=== PATIENT | male | born 1975 | race Caucasian/White ===

== ENCOUNTER 2016-09-27 05:30 | Emergency (ER) | payer OTHER ==
[~2016-09-27] VITALS: Ht 180.3 cm; Wt 145.5 kg
[~2016-09-27 05:30] MED LIST: ALEVE 220MG220 MG PO; AMBIEN 10MG10 MG PO; AMBIEN5 MG PO; HCTZ 25MG TAB25 MG PO; NO HOME MEDICATIONS; PERCOCET 325 MG1 TA3 PO; PERCOCET 5/321 UDTAB PO; ZESTRIL 5MG5 MG PO; ZIAC 5/6.25MG T1 TAB PO
[2016-09-27 05:36] VITALS: TEMP 99.7
[2016-09-27 06:26] LABS: BASO # 0.1 (0.0-0.2); BASO % 0.4 % (0.0-2.0); EOS # 0.5 (0.0-0.7); EOS % 3.6 % (0-4.0); GRAN # 9.8 (1.4-6.5); GRAN % 77.9 % (42.2-75.2); HEMATOCRIT 44.2 % (42.0-52.0); LYMPH # 1.5 (1.2-3.4); LYMPH % 11.9 % (20.0-51.0); MEAN CELL VOLUME 95 fl (80.0-100.0); MEAN CORPUSCULAR HEMOGLOBIN 30 pg (27.0-31.0); MEAN CORPUSCULAR HGB CONC 32 g/dl (33.0-37.0); MEAN PLATELET VOLUME 9.1 fl (7.4-10.4); MONO # 0.7 (0.1-0.6); MONO % 5.6 % (1.7-9.3); PLATELET COUNT 287 K/mm3 (130-400); RED BLOOD COUNT 4.67 M/mm3 (4.20-5.60); REDCELL DISTRIBUTION WIDTH-CV 13.5 % (11.5-14.5); WHITE BLOOD COUNT 12.6 K/mm3 (4.8-10.8)
[2016-09-27 06:35] LABS: PH 6 (5-8); SQUAMOUS EPITHELIAL None Seen /hpf; URINE APPEARANCE Clear; URINE BACTERIA None Seen /hpf; URINE BILIRUBIN Negative (NEGATIVE); URINE BLOOD 1+ (NEGATIVE); URINE COLOR Yellow; URINE GLUCOSE Negative (NEGATIVE); URINE KETONE Negative (NEGATIVE); URINE RBC 0-2 /hpf; URINE UROBILINOGEN Negative (NEGATIVE); URINE WBC 0-2 /hpf
[2016-09-27 06:38] LABS: CALCIUM 9.5 mg/dL (8.4-10.2); CREATININE, serum 0.8 mg/dL (0.66-1.25)
[2016-09-27 08:43] VITALS: BP 139/109; PULSE 102
== END 2016-09-27 08:30 | disposition home or self-care (01) ==
LOC: COL.ER 05:30
PROVIDERS: Emergency Medicine
DX: S52.501A Unspecified fracture of the lower end of right radius, initial encounter for closed fracture (principal); S20.212A Contusion of left front wall of thorax, initial encounter; V59.40XA Driver of pick-up truck or van injured in collision with unspecified motor vehicles in traffic accident, initial encounter; Y92.410 Unspecified street and highway as the place of occurrence of the external cause
CPT/HCPCS: J1170; J1885; J2405; J7040; Q9967

== ENCOUNTER → 2017-08-21 | Outpatient (CLI) | payer OTHER | LOC: COL.VAS 10:00 | DX: R60.0 Localized edema (principal) ==

== ENCOUNTER 2019-01-12 00:26 | Emergency (ER) | payer OTHER ==
[~2019-01-12] VITALS: Ht 180.3 cm; Wt 145.5 kg
[2019-01-12 00:42] VITALS: BP 144/83; TEMP 98.4
[2019-01-12 02:58] VITALS: PULSE 97
== END 2019-01-12 03:00 | disposition home or self-care (01) ==
LOC: COL.ER 00:26
DX: S01.511A Laceration without foreign body of lip, initial encounter (principal); I11.0 Hypertensive heart disease with heart failure; I50.9 Heart failure, unspecified; W06.XXXA Fall from bed, initial encounter; Y92.009 Unspecified place in unspecified non-institutional (private) residence as the place of occurrence of the external cause

== ENCOUNTER 2019-01-17 14:19 | Emergency (ER) | payer OTHER ==
[2019-01-17 15:18] VITALS: BP 180/111; PULSE 90; TEMP 98.7
== END 2019-01-17 15:21 | disposition home or self-care (01) ==
LOC: COL.ER 14:19
DX: S01.511D Laceration without foreign body of lip, subsequent encounter (principal); X58.XXXD Exposure to other specified factors, subsequent encounter

== ENCOUNTER 2019-07-23 18:03 | Emergency (ER) | payer OTHER ==
[~2019-07-23] VITALS: Ht 180.3 cm; Wt 159.1 kg
[2019-07-23 19:06] LABS: BASO # 0.1 (0.0-0.2); BASO % 0.4 % (0.0-2.0); EOS # 0.6 (0.0-0.7); EOS % 3.9 % (0-4.0); GRAN # 10.2 (1.4-6.5); GRAN % 71.7 % (42.2-75.2); HEMATOCRIT 47.2 % (42.0-52.0); HEMOGLOBIN 14.8 g/dl (13.5-18.0); LYMPH # 2.4 (1.2-3.4); LYMPH % 17.1 % (20.0-51.0); MEAN CELL VOLUME 97 fl (80.0-100.0); MEAN CORPUSCULAR HEMOGLOBIN 30 pg (27.0-31.0); MEAN CORPUSCULAR HGB CONC 31 g/dl (33.0-37.0); MEAN PLATELET VOLUME 9.2 fl (7.4-10.4); MONO # 0.9 (0.1-0.6); MONO % 6.4 % (1.7-9.3); PLATELET COUNT 288 K/mm3 (130-400); RED BLOOD COUNT 4.87 M/mm3 (4.20-5.60)
[2019-07-23 19:28] LABS: ALANINE AMINOTRANSFERASE 25 U/L (21-72); ALBUMIN 4.4 gm/dL (3.5-5.0); ALKALINE PHOSPHATASE 69 U/L (50-136); ANION GAP 7 mmol/L (7-16); AST,SGOT 25 U/L (15-37); BILIRUBIN,TOTAL 0.5 mg/dL (0.0-1.0); BLOOD UREA NITROGEN 12 mg/dL (9-20); CARBON DIOXIDE 33 mmol/L (22-30); CHLORIDE 100 mmol/L (98-107); CREATININE, serum 0.86 (0.66-1.25); GLUCOSE 119 mg/dL (74-106); POTASSIUM 4.5 mmol/L (3.4-5.0); SODIUM 139 mmol/L (137-145); TOTAL PROTEIN 8.6 gm/dL (6.4-8.2)
[2019-07-23 19:47] LABS: TROPONIN-I < 0.012 ng/mL (0.000-0.035)
[2019-07-23] MEDS ORDERED: ZITHROMAX 250M250 MG PO (21:08)
[2019-07-23] MEDS ORDERED: PRINZIDE 12.5 M1 TAB PO (21:08)
[2019-07-23] MEDS ORDERED: PREDNISONE20 MG PO (21:08)
[2019-07-23] MEDS ORDERED: POLYMYXIN B/TRIMETH OU (21:08)
[2019-07-23 21:19] VITALS: BP 137/76; PULSE 112; TEMP 98.7
== END 2019-07-23 21:19 | disposition home or self-care (01) ==
LOC: COL.ER 18:03
PROVIDERS: Emergency Medicine
DX: J20.9 Acute bronchitis, unspecified (principal); J06.9 Acute upper respiratory infection, unspecified; I10 Essential (primary) hypertension; E66.9 Obesity, unspecified
CPT/HCPCS: J7512

== ENCOUNTER 2021-03-16 16:54 | Inpatient (IN) | payer OTHER ==
[~2021-03-16] VITALS: Ht 182.9 cm; Wt 142.9 kg
[~2021-03-16 16:54] MED LIST changes: +POLYMYXIN B/TRIMETH OU; +PREDNISONE20 MG PO; +PRINZIDE 12.5 M1 TAB PO; +ZITHROMAX 250M250 MG PO
[2021-03-16 17:22] LABS: ARTERIAL BLD GAS O2 SATURATION 96.8 % (92-100); ARTERIAL BLD GAS TCO2 CT 29.8; ARTERIAL BLOOD GAS BASE EXCESS -3.7 (-2-2); ARTERIAL BLOOD GAS HCO3 27.4 meq/L (22-26); ARTERIAL BLOOD GAS PCO2 78.2 mmHg (35-45); ARTERIAL BLOOD GAS PO2 110.8 mmHg (80-100); ARTERIAL BLOOD GAS pH 7.16 (7.35-7.45)
[2021-03-16 17:26] LABS: ALBUMIN 3.8 gm/dL (3.5-5.0); BASO % 0.2 % (0.0-2.0); BILIRUBIN,TOTAL 1.2 mg/dL (0.0-1.0); CALCIUM 7.8 mg/dL (8.4-10.2); CREATININE, serum 1.77 (0.66-1.25); EOS % 0.2 % (0-4.0); GRAN # 15.6 (1.4-6.5); GRAN % 84.2 % (42.2-75.2); HEMATOCRIT 48.9 % (42.0-52.0); HEMOGLOBIN 15.8 g/dl (13.5-18.0); LYMPH # 1.7 (1.2-3.4); LYMPH % 8.9 % (20.0-51.0); MEAN CELL VOLUME 100 fl (80.0-100.0); MEAN CORPUSCULAR HEMOGLOBIN 32 pg (27.0-31.0); MEAN CORPUSCULAR HGB CONC 32 g/dl (33.0-37.0); MEAN PLATELET VOLUME 9.6 fl (7.4-10.4); MONO % 5.3 % (1.7-9.3); PLATELET COUNT 251 K/mm3 (130-400); POTASSIUM 5.5 mmol/L (3.4-5.0); RED BLOOD COUNT 4.91 M/mm3 (4.20-5.60); REDCELL DISTRIBUTION WIDTH-CV 14.7 % (11.5-14.5); TOTAL PROTEIN 7.4 gm/dL (6.4-8.2)
[2021-03-16 18:19] VITALS: BP 78/36; PULSE 84; TEMP 102
[2021-03-16 18:24] LABS: INR 1.5 (0.8-3.0); PROTHROMBIN TIME 16.6 SECONDS (9.7-12.8)
[2021-03-16 18:27] LABS: PARTIAL THROMBOPLASTIN TIME 34.5 SECONDS (26.0-37.0)
[2021-03-16 18:36] LABS: C-REACTIVE PROTEIN 8.3 mg/dL (0.0-0.9); LACTATE DEHYDROGENASE 991 U/L (313-618); MAGNESIUM 1.9 mg/dL (1.6-2.3); PHOSPHOROUS 4.1 mg/dL (2.5-4.5)
[2021-03-16 18:40] LABS: SALICYLATE < 1.0 mg/dL
--- NOTE | 2021-03-16 19:30 | NUR ---
Received report from MEGHAN Handy.
--- NOTE | 2021-03-16 19:30 | NUR ---
PATIENT ARRIVED TO ICU AT 1814. HE IS SEDATED AND INTUBATED. SR ON TELE, BP HYPOTENSIVE, LEVOPHED INCREASED. CENTRAL LINE IN PLACE WITH IVF BOLUS INFUSING. RESTRAINTS APPLIED AND AUTOMOTIVE STARTER REPAIRER HERE TO PLACE PATIENT ON VENTILATOR FROM TRANSPORT VENT. FENTANYL STARTED FOR PAIN AND DISCOMFORT. LEVOPHED CONTINUED TO BE INCREASED TO MAINTAIN MAP OF 65 OR GREATER. PATIENT SEDATION HELD PER DR. BELL GIVES ORDER TO HOLD SEDATION AND SEE IF HE WAKES. PATIENT WAKES AFTER SOME TIME AND STRUGGLES, EYES WIDE OPEN AND FRANTIC. I EXPLAIN TO HIM THAT HE IS IN THE HOSPITAL AND HAD A LOT OF TROUBLE BREATHING SO NOW HE IS ON THE VENTILATOR. HE ATTEMPTS TO SPEAK TO ME AROUND THE ET TUBE. SEDATION RESTARTED AND INCREASED AND VECURONIUM GIVEN PER DR. BELL ORDER. HYPOTHERMIA PROTOCOL NOT INITIATE D/T ADEQUATE NEURO RESPONSES. PATIENT HAS TEMPERATURE OF 102.0 DEGREES AXILLARY, RECTAL TYLENOL GIVEN. ARTERIAL LINE PLACED BY [employer].
[2021-03-16 20:00] VITALS: BP 106/72; PULSE 70; TEMP 102.1
--- NOTE | 2021-03-16 20:00 | NUR ---
REPORT GIVEN TO MEGHAN TEJADA. JEANIE MCLAUGHLIN HERE PLACING ORDERS ON THE PATIENT. RT IN THE ROOM DOING EKG AND MAKING VENT SETTING CHANGES.
[2021-03-16 20:30] VITALS: BP 72/55
--- NOTE | 2021-03-16 20:30 | NUR ---
At time of assessment, patient minimally responsive to verbal or painful stimuli. Patient received vecuronium push at 1930. Patient is cool to touch and diaphoretic; beads of sweat noted to the patient's forehead and chest. Axillary temperature of 102.1 F; patient has also recently received rectal tylenol. All other vitals within normal limits. Propofol, fentanyl, and levophed drips continue to infuse. Vasopressin on standby.
[2021-03-16] MEDS ORDERED: PERCOCET 325 MG1 TAB PO (20:48)
[2021-03-16] MEDS ORDERED: DAZIDOX10 MG PO (20:49)
[2021-03-16 20:57] LABS: COLLECTION METHOD CLEAN CATCH
[2021-03-16 21:07] LABS: GRANULAR CAST >12 /lpf; MUCOUS Present /lpf; PH 5 (5-8); SQUAMOUS EPITHELIAL 0-2 /hpf; URINE APPEARANCE Cloudy; URINE BACTERIA Rare /hpf; URINE BILIRUBIN Negative (NEGATIVE); URINE BLOOD 2+ (NEGATIVE); URINE COLOR Amber; URINE GLUCOSE 1+ (NEGATIVE); URINE KETONE Negative (NEGATIVE); URINE LEUKOCYTE ESTERASE Negative (NEGATIVE); URINE NITRATE Negative (NEGATIVE); URINE PROTEIN(semi-quant) 3+ (NEGATIVE); URINE UROBILINOGEN >=4.0 mg/dL (NEGATIVE)
[2021-03-16 21:14] LABS: CALCIUM 6.6 mg/dL (8.4-10.2); CREATININE, serum 2.01 (0.66-1.25); POTASSIUM 4.4 mmol/L (3.4-5.0)
[2021-03-16 21:35] LABS: ARTERIAL BLD GAS O2 SATURATION 95.1 % (92-100); ARTERIAL BLD GAS TCO2 CT 26.7; ARTERIAL BLOOD GAS BASE EXCESS -0.9 (-2-2); ARTERIAL BLOOD GAS HCO3 25.3 meq/L (22-26); ARTERIAL BLOOD GAS PO2 85.5 mmHg (80-100); ARTERIAL BLOOD GAS pH 7.35 (7.35-7.45)
[2021-03-16 23:08] VITALS: TEMP 101.7
[2021-03-16] MEDS ORDERED: LASIX 20MG TABL20 MG PO (23:27)
--- NOTE | 2021-03-16 23:39 | NUR ---
Updated patient's , Farida.
[2021-03-17] VITALS (77 sets, daily range): BP systolic 78–140; BP diastolic 56–99; PULSE 57–95; TEMP 96.5–98.9; O2SAT 88–98
--- NOTE | 2021-03-17 00:57 | NUR ---
During prior conversation, , Farida, states patient regularly wears contacts and was likely wearing them at time of admission. Patient's eyes have been blood shot since admission, the left eye more so than the right. Upon close inspection, contacts noted to be in place. This RN attempted to moisten contacts with saline before attempting removal. Unable to easily remove lenses. In order to avoid scratching patient's eyes, contacts left in place. Maritza hospitalist, notified.
[2021-03-17 03:48] LABS: ARTERIAL BLD GAS O2 SATURATION 97.5 % (92-100); ARTERIAL BLD GAS TCO2 CT 26.8; ARTERIAL BLOOD GAS BASE EXCESS 0.5 (-2-2); ARTERIAL BLOOD GAS HCO3 25.5 meq/L (22-26); ARTERIAL BLOOD GAS PCO2 42.3 mmHg (35-45); ARTERIAL BLOOD GAS PO2 97.9 mmHg (80-100)
[2021-03-17 05:57] LABS: HEMATOCRIT 45.6 % (42.0-52.0); HEMOGLOBIN 14.6 g/dl (13.5-18.0); MEAN CELL VOLUME 100 fl (80.0-100.0); MEAN CORPUSCULAR HEMOGLOBIN 32 pg (27.0-31.0); MEAN CORPUSCULAR HGB CONC 32 g/dl (33.0-37.0); MEAN PLATELET VOLUME 10.2 fl (7.4-10.4); PLATELET COUNT 205 K/mm3 (130-400); RED BLOOD COUNT 4.55 M/mm3 (4.20-5.60); REDCELL DISTRIBUTION WIDTH-CV 14.9 % (11.5-14.5)
[2021-03-17 06:13] LABS: BAND 44 % (0-10); HYPOCHROMIA 1+; LYMPHOCYTE 3 % (20.0-51.0); NEUTROPHILS 52 % (42.0-75.2); PLATELET ESTIMATE NORMAL (NORMAL)
[2021-03-17 06:20] LABS: ALBUMIN 3.3 gm/dL (3.5-5.0); CALCIUM 7.1 mg/dL (8.4-10.2); CREATININE, serum 1.72 (0.66-1.25); MAGNESIUM 1.8 mg/dL (1.6-2.3); PHOSPHOROUS 3.5 mg/dL (2.5-4.5); POTASSIUM 4.2 mmol/L (3.4-5.0); TOTAL PROTEIN 6.7 gm/dL (6.4-8.2)
--- NOTE | 2021-03-17 07:15 | NUR ---
BEDSIDE SHIFT REPORT RECEIVED FROM MEGHAN HAYWARD. PATIENT IS SEDATED AND VENTILATED WITH RIGHT INTERNAL JUGULAR TRIPLE LUMEN CATHETER, RESTREPO CATHETER AND LEFT ARTERIAL LINE STILL IN PLACE. VSS. PATIENT RESTING AND CAN FOLLOW COMMANDS. ALL TUBES AND LINES PATENT. SEE GTT TITRATION FLOWSHEET.
--- NOTE | 2021-03-17 15:12 | NUR ---
Patient is currently on a ventilator. Patient resides with his , who is also covid positive and hospitalized. Patient will plan to return home upon discharge. Case management will continue to follow and assist with securing a safe discharge plan.
--- NOTE | 2021-03-17 16:40 | NUR ---
Dianna, land manager, notified GORDON that the patient's contacted her and they need to get [place] paperwork done for the patient. GORDON contacted the patient's , Farida. Farida provided GORDON with the person to contact at his employer, [employer] (ph#[phone]). GORDON contacted Radha. Radha reports that their are two forms that the patient's can fill out and one the patient's doctor or PA will need to complete and sign. Radha emailed the forms to this SW. The patient's is also hospitalized at [facility]. GORDON provided the two forms to his 's RN to give to her. GORDON collaborated with weekend bilingual social worker to provide the third form to the patient's provider this weekend to fill out.
--- NOTE | 2021-03-17 19:00 | NUR ---
Received report from MEGHAN Hayward.
--- NOTE | 2021-03-17 20:44 | NUR ---
Patient resting quietly in bed. He is tolerating ventilator well. All vitals within normal limits. He arouses easily to speech and follows verbal commands. Continues to receive fentanyl and propofol drips. Blood-tinged sputum noted when performing ET tube suctioning. Moderate amount of clear oral secretions noted. Patient repositioned, bed in lowest position, all alarms on. No further needs noted.
[2021-03-18] VITALS (243 sets, daily range): BP systolic 91–127; BP diastolic 61–80; PULSE 64–71; TEMP 97.4–98.5; O2SAT 86–100
[2021-03-18 05:31] LABS: ARTERIAL BLD GAS O2 SATURATION 94.1 % (92-100); ARTERIAL BLOOD GAS BASE EXCESS 3.1 (-2-2); ARTERIAL BLOOD GAS HCO3 28.2 meq/L (22-26); ARTERIAL BLOOD GAS PCO2 44.7 mmHg (35-45); ARTERIAL BLOOD GAS PO2 72.1 mmHg (80-100); ARTERIAL BLOOD GAS pH 7.41 (7.35-7.45)
--- NOTE | 2021-03-18 05:34 | NUR ---
PT STILL ON A PEEP OF 18 AT THIS TIME, DOES NOT MEET WEANING PARAMETERS
[2021-03-18 06:42] LABS: HEMATOCRIT 41.3 % (42.0-52.0); HEMOGLOBIN 13.5 g/dl (13.5-18.0); MEAN CELL VOLUME 98 fl (80.0-100.0); MEAN CORPUSCULAR HEMOGLOBIN 32 pg (27.0-31.0); MEAN CORPUSCULAR HGB CONC 33 g/dl (33.0-37.0); MEAN PLATELET VOLUME 10.5 fl (7.4-10.4); PLATELET COUNT 182 K/mm3 (130-400); REDCELL DISTRIBUTION WIDTH-CV 15.1 % (11.5-14.5)
--- NOTE | 2021-03-18 07:00 | NUR ---
RECEIVED REPORT FROM MEGHAN HAYWARD. PT RESTING EASILY ON CURRENT VENT SETTINGS: TV 500, PEEP 18, RR 22, FIO2 60%. FC PATENT AND DRAINING TO GRAVITY, ORANGE SEDIMENT NOTED. SOFTWARE DEVELOPMENT COORDINATOR IN PLACE. OGT AT 68CM AT THE TEETH WITH TF INFUSING AT 30ML/HR. SEE GTT FLOWSHEET. CALL LIGHT PLACED IN PT'S HAND. VSS.
[2021-03-18 07:05] LABS: ALBUMIN 3.1 gm/dL (3.5-5.0); BILIRUBIN,TOTAL 1.1 mg/dL (0.0-1.0); CALCIUM 7.6 mg/dL (8.4-10.2); CREATININE, serum 1.4 (0.66-1.25); MAGNESIUM 2.4 mg/dL (1.6-2.3); PHOSPHOROUS 2.7 mg/dL (2.5-4.5); POTASSIUM 3.9 mmol/L (3.4-5.0); TOTAL PROTEIN 6.4 gm/dL (6.4-8.2)
--- NOTE | 2021-03-18 07:50 | NUR ---
Report given to MEGHAN Nino.
[2021-03-18 07:52] LABS: BAND 24 % (0-10); LYMPHOCYTE 5 % (20.0-51.0); NEUTROPHILS 69 % (42.0-75.2)
[2021-03-18 07:53] LABS: PLATELET ESTIMATE NORMAL (NORMAL)
--- NOTE | 2021-03-18 08:55 | NUR ---
SPOKE TO DR FLORES ABOUT POC. PROVIDER REQUESTS TO LEAVE FIO2 AT 50% NOW AND START TURNING DOWN THE PEEP BY 2 LONG POX MAINTAINS ABOVE 90% AND PT APPEARS TO TOLERATE. WILL MONITOR CLOSELY. PEEP DECREASED TO 16 AT THIS TIME.
--- NOTE | 2021-03-18 11:35 | NUR ---
NOTIFIED DR MARY [facility] TREND. NO NEW ORDERS.
--- NOTE | 2021-03-18 12:00 | NUR ---
FC BARELY DRAINED ANY SINCE 0900. ATTEMPTED TO IRRIAGTE BUT UNSUCCESSFUL. SPOKE TO DR FLORES, PROVIDER STATES OK TO EXCHANGE. COUDE FC REMOVED AND REPLACED WITH STERILE TECHNIQUE WITH A 14FR COUDE TIP WITH 10ML IN BULB AT THIS TIME BY MEGHAN ROSALES. VSS.
--- NOTE | 2021-03-18 15:30 | NUR ---
RESDIUAL 10ML. TF INCREASED TO 45 ML/HR.
--- NOTE | 2021-03-18 19:00 | NUR ---
Received report from MEGHAN Nino.
--- NOTE | 2021-03-18 20:00 | NUR ---
Patient resting quietly in bed. Tolerating ventilator well. All vitals within normal limits. Patient is alert and following verbal commands. Patient assisted in using cell phone. Periphal IVs in right shoulder and left AC removed due to central line access. No further needs noted.
[2021-03-19] VITALS (30 sets, daily range): BP systolic 119–190; BP diastolic 82–134; PULSE 54–79; TEMP 96.7–98.3; O2SAT 90–94
[2021-03-19 05:46] LABS: HEMATOCRIT 41.7 % (42.0-52.0); HEMOGLOBIN 13.5 g/dl (13.5-18.0); MEAN CELL VOLUME 99 fl (80.0-100.0); MEAN CORPUSCULAR HEMOGLOBIN 32 pg (27.0-31.0); MEAN CORPUSCULAR HGB CONC 32 g/dl (33.0-37.0); MEAN PLATELET VOLUME 10.5 fl (7.4-10.4); PLATELET COUNT 173 K/mm3 (130-400); RED BLOOD COUNT 4.21 M/mm3 (4.20-5.60); REDCELL DISTRIBUTION WIDTH-CV 15.2 % (11.5-14.5)
[2021-03-19 05:58] LABS: ARTERIAL BLD GAS O2 SATURATION 92.6 % (92-100); ARTERIAL BLD GAS TCO2 CT 32.1; ARTERIAL BLOOD GAS BASE EXCESS 5.1 (-2-2); ARTERIAL BLOOD GAS HCO3 30.6 meq/L (22-26); ARTERIAL BLOOD GAS PCO2 48.4 mmHg (35-45); ARTERIAL BLOOD GAS PO2 64.5 mmHg (80-100); ARTERIAL BLOOD GAS pH 7.42 (7.35-7.45)
[2021-03-19 06:02] LABS: ALBUMIN 3.2 gm/dL (3.5-5.0); BILIRUBIN,TOTAL 0.7 mg/dL (0.0-1.0); CALCIUM 7.9 mg/dL (8.4-10.2); CREATININE, serum 0.97 (0.66-1.25); MAGNESIUM 2.7 mg/dL (1.6-2.3); PHOSPHOROUS 2.2 mg/dL (2.5-4.5); POTASSIUM 3.9 mmol/L (3.4-5.0); TOTAL PROTEIN 6.4 gm/dL (6.4-8.2)
[2021-03-19 06:14] LABS: C-REACTIVE PROTEIN 14.9 mg/dL (0.0-0.9)
[2021-03-19 06:31] LABS: BAND 3 % (0-10); BASOPHIL 1 % (0-2); LYMPHOCYTE 3 % (20.0-51.0); NEUTROPHILS 89 % (42.0-75.2)
[2021-03-19 06:32] LABS: PLATELET ESTIMATE NORMAL (NORMAL)
[2021-03-19 06:33] LABS: ANISOCYTOSIS 1+
[2021-03-19 06:34] LABS: HYPOCHROMIA 2+
--- NOTE | 2021-03-19 07:14 | NUR ---
BEDSIDE SHIFT REPORT RECEIVED FROM MEGHAN HAYWARD. GLEN RESTING IN BED WITH EYES CLOSED. STILL SEDATED AND INTUBATED WITH RIGHT INTERNAL JUGULAR STILL IN PLACE. RESTREPO CATHETER STILL IN PLACE, EXCHANGED YESTERDAY. SEE GTT TITRATION FLOWSHEET. VSS, WITH A BIT OF HYPERTENSION. WILL CONSULT WITH PHYSICIANS ABOUT PLAN OF CARE.
[2021-03-19 12:47] LABS: PH 5 (5-8); SQUAMOUS EPITHELIAL None Seen /hpf; URINE APPEARANCE Cloudy; URINE BACTERIA Rare /hpf; URINE BILIRUBIN Negative (NEGATIVE); URINE BLOOD 3+ (NEGATIVE); URINE COLOR Yellow; URINE GLUCOSE 2+ (NEGATIVE); URINE KETONE Negative (NEGATIVE); URINE LEUKOCYTE ESTERASE Trace (NEGATIVE); URINE NITRATE Negative (NEGATIVE); URINE PROTEIN(semi-quant) 2+ (NEGATIVE); URINE RBC >50 /hpf
--- NOTE | 2021-03-19 14:02 | NUR ---
PROPOFOL PLACED ON STANDBY
--- NOTE | 2021-03-19 23:48 | NUR ---
DAY SHIFT NURSE PASSED ON IN REPORT THAT DR FLORES HAD TALKED TO PHARMACY ABOUT STARTING AN ALTERNATIVE MEDICATION FOR ACTEMRA FOR AN ELEVATED CRP LEVEL BUT DOSING WAS NEVER VERIFIED. REQUESTED TO CALL [facility] TO CALL DR. MELO ABOUT DOSING. ANITASANGEETA DOESNT HAVE RECORD OF WHAT DR. FLORES DISCUSSED WITH IN HOU[facility] SO THAT IS ONE PLACE OF POSSIBLE ERROR WITH ORDERING ALONG WITH NOT BEING ABLE TO DISCUSS WHAT DR. FLORES WANTS WITH DR. MELO SINCE THEY ALSO HAVE LIMITED PT INFORMATION AND LIMITED INFORMATION OF WHAT DR. FLORES WOULD WANT TO ORDER. DR. FLORES AND DR. MELO WILL MOST LIKELY HAVE TO COMMUNICATE ABOUT ELEVATED CRP AND FROM THERE DR. MELO COULD REACH OUT TO IN HOUSE PHARMACY DURING THE DAY TO DOSE/ORDER APPROPRIATE MEDICATION FOR PATIENT.
[2021-03-20] VITALS (803 sets, daily range): BP systolic 147–178; BP diastolic 93–124; PULSE 51–84; TEMP 96.1–98.4; O2SAT 91–96
[2021-03-20 02:45] LABS: BASO % 0.1 % (0.0-2.0); GRAN % 86.6 % (42.2-75.2); HEMATOCRIT 44.9 % (42.0-52.0); HEMOGLOBIN 14.1 g/dl (13.5-18.0); LYMPH # 0.6 (1.2-3.4); LYMPH % 7.1 % (20.0-51.0); MEAN CELL VOLUME 100 fl (80.0-100.0); MEAN CORPUSCULAR HEMOGLOBIN 32 pg (27.0-31.0); MEAN CORPUSCULAR HGB CONC 31 g/dl (33.0-37.0); MEAN PLATELET VOLUME 10.8 fl (7.4-10.4); MONO # 0.4 (0.1-0.6); MONO % 5.5 % (1.7-9.3); PLATELET COUNT 184 K/mm3 (130-400); RED BLOOD COUNT 4.47 M/mm3 (4.20-5.60); REDCELL DISTRIBUTION WIDTH-CV 15.2 % (11.5-14.5)
[2021-03-20 02:59] LABS: ALBUMIN 3.4 gm/dL (3.5-5.0); BILIRUBIN,TOTAL 0.8 mg/dL (0.0-1.0); C-REACTIVE PROTEIN 6.7 mg/dL (0.0-0.9); CALCIUM 8.4 mg/dL (8.4-10.2); CREATININE, serum 0.91 (0.66-1.25); MAGNESIUM 2.8 mg/dL (1.6-2.3); PHOSPHOROUS 3.2 mg/dL (2.5-4.5); POTASSIUM 4.3 mmol/L (3.4-5.0)
[2021-03-20 05:03] LABS: ARTERIAL BLD GAS O2 SATURATION 93.1 % (92-100); ARTERIAL BLOOD GAS BASE EXCESS 3.7 (-2-2); ARTERIAL BLOOD GAS HCO3 28.6 meq/L (22-26); ARTERIAL BLOOD GAS PCO2 43.9 mmHg (35-45); ARTERIAL BLOOD GAS PO2 67.1 mmHg (80-100); ARTERIAL BLOOD GAS pH 7.43 (7.35-7.45)
--- NOTE | 2021-03-20 06:13 | NUR ---
SEDATION TITRATED OVERNIGHT TO OBTAIN LIGHT SEDATION FOR PATIENT. ABLE TO FOLLOW COMMANDS. PT NODS THAT HE IS UNCOMFORTABLE AWAKE AT THIS TIME.
--- NOTE | 2021-03-20 07:05 | NUR ---
BEDSIDE SHIFT REPORT RECEIVED FROM MEGHAN SALGUERO. PATIENT RESTING IN BED WITH EYES CLOSED. STILL SEDATED AND VENTILATED WITH RESTREPO CATHETER AND TRIPLE LUMEN CATHETER STILL IN PLACE. VSS. TELEVISION ON FOR STIMULATION.
[2021-03-21] VITALS (894 sets, daily range): BP systolic 155–181; BP diastolic 105–119; PULSE 53–86; TEMP 97.5–100.4; O2SAT 86–99
[2021-03-21 04:36] LABS: ARTERIAL BLD GAS O2 SATURATION 93.7 % (92-100); ARTERIAL BLD GAS TCO2 CT 31.3; ARTERIAL BLOOD GAS BASE EXCESS 5.3 (-2-2); ARTERIAL BLOOD GAS PCO2 43.8 mmHg (35-45); ARTERIAL BLOOD GAS pH 7.45 (7.35-7.45)
[2021-03-21 05:55] LABS: HEMOGLOBIN 14.3 g/dl (13.5-18.0); MEAN CELL VOLUME 99 fl (80.0-100.0); MEAN CORPUSCULAR HEMOGLOBIN 31 pg (27.0-31.0); MEAN CORPUSCULAR HGB CONC 32 g/dl (33.0-37.0); MEAN PLATELET VOLUME 10.4 fl (7.4-10.4); PLATELET COUNT 198 K/mm3 (130-400); RED BLOOD COUNT 4.55 M/mm3 (4.20-5.60); REDCELL DISTRIBUTION WIDTH-CV 15.4 % (11.5-14.5)
[2021-03-21 06:10] LABS: ALBUMIN 3.2 gm/dL (3.5-5.0); BILIRUBIN,TOTAL 0.8 mg/dL (0.0-1.0); C-REACTIVE PROTEIN 3.3 mg/dL (0.0-0.9); CALCIUM 8.5 mg/dL (8.4-10.2); CREATININE, serum 0.97 (0.66-1.25); POTASSIUM 4.5 mmol/L (3.4-5.0); TOTAL PROTEIN 6.7 gm/dL (6.4-8.2)
[2021-03-21 06:21] LABS: ANISOCYTOSIS 1+; BAND 2 % (0-10); HYPOCHROMIA 2+; LYMPHOCYTE 14 % (20.0-51.0); MYELOCYTE 4 % (0-0); NEUTROPHILS 75 % (42.0-75.2); PLATELET ESTIMATE NORMAL (NORMAL)
--- NOTE | 2021-03-21 06:51 | NUR ---
SEDATION WAS DECREASED DURING THE DAY AND PATIENT BECAME RESTLESS AND PATIENT SHOOK HIS HEAD YES THAT HE WAS UNCOMFORTABLE WHEN ASKED; SEDATION MEDS INCREASED TO PROMOTE COMFORT.
--- NOTE | 2021-03-21 07:30 | NUR ---
BEDSIDE SHIFT REPORT RECEIVED FROM MEGHAN LAW. PATIENT IS RESTING IN BED COMFORTABLY WITH EYES CLOSED. STILL HYPERTENSIVE BUT OTHERWISE VITALS STABLE FOR PATIENT. RESTREPO CATHETER AND TRIPLE LUMEN PICC STILL IN PLACE. STILL SEDATED AND INTUBATED. SEE GTT TITRATION FLOWSHEET.
--- NOTE | 2021-03-21 19:00 | NUR ---
Received report from MEGHAN Hayward.
--- NOTE | 2021-03-21 19:15 | NUR ---
Patient resting in bed with eyes open. He is very alert, calm, and follows all verbal commands. Patient denies presence of pain by shaking his head when asked. When asked if uncomfortable, patient vigorously nods his head. Currently receiving fentanyl and precedex drips. Per report from MEGHAN Hayward, propofol titrated off today 'due to high lipids.' Patient noted to be hypertensive throughout dayshift, with SBPs ranging 160-180s, DBPs consistently 100-120s. He frequently gags/chokes on ET tube. EMIL physician, Dr. Vang, notified of the above. Received orders for Versed 2mg IV Q 2 hours PRN for discomfort.
--- NOTE | 2021-03-21 21:30 | NUR ---
Versed push administered at 1935 per orders received from Dr. Vang with little effect. Patient remains hyper-alert and continues to communicate his discomfort. No lipid profile noted in patient's labs. Dr. Vang notified. Received orders to restart propofol and to reassess sedation needs following a lipid profile in AM.
--- NOTE | 2021-03-21 22:30 | NUR ---
Patient's , Farida, updated.
[2021-03-22] VITALS (727 sets, daily range): BP systolic 132–148; BP diastolic 91–107; PULSE 58–91; TEMP 96.9–98.6; O2SAT 85–95
--- NOTE | 2021-03-22 01:33 | NUR ---
Oral care performed at approximately 0100 when patient saturations noted to sustain at 88%. Patient began making gurgling sounds following ET tube suctioning. RTRosa, notified, who assessed patient at bedside. ET tube advanced slightly from 24 to 25 at the lip. Patient tolerated well. Sats improved to 92-93%.
[2021-03-22 04:25] LABS: ARTERIAL BLD GAS O2 SATURATION 89.6 % (92-100); ARTERIAL BLD GAS TCO2 CT 31.9; ARTERIAL BLOOD GAS BASE EXCESS 5.3 (-2-2); ARTERIAL BLOOD GAS HCO3 30.5 meq/L (22-26); ARTERIAL BLOOD GAS PCO2 46.2 mmHg (35-45); ARTERIAL BLOOD GAS PO2 56.8 mmHg (80-100); ARTERIAL BLOOD GAS pH 7.44 (7.35-7.45)
[2021-03-22 06:39] LABS: HEMATOCRIT 45.7 % (42.0-52.0); HEMOGLOBIN 14.7 g/dl (13.5-18.0); MEAN CELL VOLUME 99 fl (80.0-100.0); MEAN CORPUSCULAR HEMOGLOBIN 32 pg (27.0-31.0); MEAN CORPUSCULAR HGB CONC 32 g/dl (33.0-37.0); MEAN PLATELET VOLUME 10.3 fl (7.4-10.4); PLATELET COUNT 232 K/mm3 (130-400); RED BLOOD COUNT 4.64 M/mm3 (4.20-5.60); REDCELL DISTRIBUTION WIDTH-CV 15.4 % (11.5-14.5)
[2021-03-22 06:49] LABS: CALCIUM 8.5 mg/dL (8.4-10.2); CREATININE, serum 0.89 (0.66-1.25); POTASSIUM 4.4 mmol/L (3.4-5.0)
[2021-03-22 06:53] LABS: BAND 1 % (0-10); EOSINOPHIL 1 % (0-4); LYMPHOCYTE 22 % (20.0-51.0); METAMYELOCYTE 1 % (0-0); NEUTROPHILS 69 % (42.0-75.2); PLATELET ESTIMATE NORMAL (NORMAL)
--- NOTE | 2021-03-22 07:15 | NUR ---
Report given to MEGHAN Shirley.
--- NOTE | 2021-03-22 19:09 | NUR ---
PT report given to MEGHAN Ortiz.
[2021-03-23] VITALS (727 sets, daily range): BP systolic 134–160; BP diastolic 88–102; PULSE 69–78; TEMP 98–99.2; O2SAT 87–95
[2021-03-23 05:30] LABS: ARTERIAL BLD GAS O2 SATURATION 92.4 % (92-100); ARTERIAL BLD GAS TCO2 CT 31.1; ARTERIAL BLOOD GAS BASE EXCESS 4.6 (-2-2); ARTERIAL BLOOD GAS HCO3 29.7 meq/L (22-26); ARTERIAL BLOOD GAS PCO2 45.3 mmHg (35-45); ARTERIAL BLOOD GAS PO2 67.3 mmHg (80-100); ARTERIAL BLOOD GAS pH 7.44 (7.35-7.45)
[2021-03-23 06:54] LABS: HEMATOCRIT 46.8 % (42.0-52.0); HEMOGLOBIN 15.1 g/dl (13.5-18.0); MEAN CELL VOLUME 98 fl (80.0-100.0); MEAN CORPUSCULAR HEMOGLOBIN 32 pg (27.0-31.0); MEAN CORPUSCULAR HGB CONC 32 g/dl (33.0-37.0); MEAN PLATELET VOLUME 10.3 fl (7.4-10.4); PLATELET COUNT 263 K/mm3 (130-400); RED BLOOD COUNT 4.76 M/mm3 (4.20-5.60); REDCELL DISTRIBUTION WIDTH-CV 15.1 % (11.5-14.5)
--- NOTE | 2021-03-23 07:00 | NUR ---
RECEIVED REPORT FROM MEGHAN HAYWARD. PT RESTING EASILY ON CURRENT VENT SETTINGS: TV 500, PEEP 8, RR 22, FIO2 75%. OGT WITH TF INFUSING AT 20ML/HR. PER REPORT, RESIDUALS HAVE STILL BEEN ON THE HIGHER SIDE AND WE ARE BE CAUTIOUS ABOUT INCREASING TF TOO FAST. WILL MONITOR CLOSELY. DIRECT CARE WORKER IN PLACE. VSS. SEE GTT FLOWSHEET. FC PATENT AND DRAINING TO GRAVITY.
[2021-03-23 07:12] LABS: BILIRUBIN,TOTAL 0.8 mg/dL (0.0-1.0); C-REACTIVE PROTEIN 0.9 mg/dL (0.0-0.9); CALCIUM 8.7 mg/dL (8.4-10.2); CREATININE, serum 0.88 (0.66-1.25); POTASSIUM 4.4 mmol/L (3.4-5.0); TOTAL PROTEIN 6.2 gm/dL (6.4-8.2)
[2021-03-23 07:43] LABS: ANISOCYTOSIS 1+; HYPOCHROMIA 1+; METAMYELOCYTE 1 % (0-0); PLATELET ESTIMATE NORMAL (NORMAL)
[2021-03-23 07:44] LABS: EOSINOPHIL 10 % (0-4); LYMPHOCYTE 20 % (20.0-51.0); NEUTROPHILS 59 % (42.0-75.2)
--- NOTE | 2021-03-23 08:05 | NUR ---
Report given to MEGHAN Nino.
--- NOTE | 2021-03-23 10:50 | NUR ---
SPOKE TO DR PRATER AND DR FLORES ABOUT PT'S CENTRAL LINE BEING IN SINCE LAST SATURDAY AND IF WOULD LIKE SWITCHED OUT TO PICC LINE. NEW ORDERS RECEIVED. AIVS NOTIFIED.
--- NOTE | 2021-03-23 12:45 | NUR ---
UPDATED PT'S MANJEET AND MADE PLANS TO ALLOW HER TO FACETIME PT LATER THIS AFTERNOON.
--- NOTE | 2021-03-23 12:55 | NUR ---
RESDIUAL 10ML. TF INCREASED TO 40ML/HR. WILL MONITOR CLOSELY IF TOLERATING OR NOT.
--- NOTE | 2021-03-23 16:20 | NUR ---
PT GOT TO FACETIME WITH AND CHILD FOR A LITTLE BIT. PT DID BECOME TEARFUL BUT REMAINED CALM. CENTRAL LINE REMOVED AT THIS TIME AND ALL GTT'S MOVED TO ARTI PICC THAT WAS INSERTED TODAY PER DR FLORES'S INSTRUCTIONS.
--- NOTE | 2021-03-23 22:59 | NUR ---
Patient updated. No other questions at this time
[2021-03-24] VITALS (646 sets, daily range): BP systolic 117–141; BP diastolic 72–96; PULSE 67–72; TEMP 97.8–99.3; O2SAT 87–95
[2021-03-24 04:58] LABS: ARTERIAL BLD GAS O2 SATURATION 93.1 % (92-100); ARTERIAL BLD GAS TCO2 CT 26.9; ARTERIAL BLOOD GAS BASE EXCESS 2.4 (-2-2); ARTERIAL BLOOD GAS HCO3 25.8 meq/L (22-26); ARTERIAL BLOOD GAS PCO2 36.6 mmHg (35-45); ARTERIAL BLOOD GAS PO2 66.9 mmHg (80-100); ARTERIAL BLOOD GAS pH 7.47 (7.35-7.45)
[2021-03-24 06:07] LABS: HEMATOCRIT 45.4 % (42.0-52.0); HEMOGLOBIN 15.5 g/dl (13.5-18.0); MEAN CELL VOLUME 97 fl (80.0-100.0); MEAN CORPUSCULAR HEMOGLOBIN 33 pg (27.0-31.0); MEAN CORPUSCULAR HGB CONC 34 g/dl (33.0-37.0); MEAN PLATELET VOLUME 10.7 fl (7.4-10.4); PLATELET COUNT 298 K/mm3 (130-400); REDCELL DISTRIBUTION WIDTH-CV 14.7 % (11.5-14.5)
[2021-03-24 06:19] LABS: ALBUMIN 3.2 gm/dL (3.5-5.0); BILIRUBIN,TOTAL 0.8 mg/dL (0.0-1.0); CALCIUM 8.4 mg/dL (8.4-10.2); CREATININE, serum 0.78 (0.66-1.25); POTASSIUM 4.4 mmol/L (3.4-5.0); TOTAL PROTEIN 6.5 gm/dL (6.4-8.2)
[2021-03-24 06:22] LABS: C-REACTIVE PROTEIN 0.5 mg/dL (0.0-0.9)
--- NOTE | 2021-03-24 06:39 | NUR ---
PATIENT RESPONDS TO VERBAL COMMANDS AND ANSWERS QUESTIONS APPROPRIATELY
--- NOTE | 2021-03-24 07:45 | NUR ---
PATIENT DID WELL THROUGHOUT THE SHIFT; HE WAS RESPONSIVE AND ANSWERED QUESTIONS APPROPRIATELY WHEN ASKED. BLOOD PRESSURE WAS SLIGHTLY ELEVATED DUE TO IMPROPER CUFF PLACEMENT, WHEN THIS WAS FIXED BLOOD PRESSURES IMPROVED. PATIENT RESTING COMFORTABLY AT THE END OF SHIFT.
--- NOTE | 2021-03-24 08:30 | NUR ---
Patient assessment completed after received report from MEGHAN Bond. Patient is lightly sedated and responds appropriately to stimulation and conversation. Bowel sounds are hypoactive and tube feeding residual high at 320 despite the feeding being on hold since 0400. Will continue to hold tube feeds at this time and discuss with Dr. Alfaro about starting something to move bowels and aid in stomach emptying.
[2021-03-24 08:48] LABS: BAND 1 % (0-10); EOSINOPHIL 2 % (0-4); LYMPHOCYTE 19 % (20.0-51.0); NEUTROPHILS 71 % (42.0-75.2); PLATELET ESTIMATE NORMAL (NORMAL); TEAR DROP CELLS 1+
--- NOTE | 2021-03-24 13:00 | NUR ---
PATIENT RESTING COMFORTABLY THROUGH THE MORNING. HE WAKES EASILY, RESPONDS APPROPRIATELY. UPDATE GIVEN TO , MANJEET. VIDEO CALL SCHEDULED WITH HER AND PATIENT FOR 1729.
--- NOTE | 2021-03-24 17:45 | NUR ---
SEDATION VACATION AND VIDEO CALL WITH DONE AT SAME TIME. PATIENT TOLERATED WELL. HE REMAINS ON VENT WITH PEEP OF 10 AND FIO2 OF 100%
--- NOTE | 2021-03-24 20:00 | NUR ---
Assessment complete and charted. Patient drowsy but aroses easily. Repositioned. Call light in reach.
[2021-03-25] VITALS (702 sets, daily range): BP systolic 118–137; BP diastolic 79–96; PULSE 62–76; TEMP 98.5–100.4; O2SAT 88–96
--- NOTE | 2021-03-25 05:00 | NUR ---
Patient awake and alert. No change in sedation needed. Patient following commands.
[2021-03-25 05:54] LABS: HEMATOCRIT 47.7 % (42.0-52.0); HEMOGLOBIN 15.3 g/dl (13.5-18.0); MEAN CORPUSCULAR HEMOGLOBIN 33 pg (27.0-31.0); MEAN CORPUSCULAR HGB CONC 32 g/dl (33.0-37.0); MEAN PLATELET VOLUME 10.6 fl (7.4-10.4); PLATELET COUNT 330 K/mm3 (130-400); RED BLOOD COUNT 4.69 M/mm3 (4.20-5.60); REDCELL DISTRIBUTION WIDTH-CV 14.9 % (11.5-14.5)
[2021-03-25 05:57] LABS: ARTERIAL BLD GAS O2 SATURATION 93.2 % (92-100); ARTERIAL BLD GAS TCO2 CT 27.7; ARTERIAL BLOOD GAS HCO3 26.5 meq/L (22-26); ARTERIAL BLOOD GAS PCO2 40.7 mmHg (35-45); ARTERIAL BLOOD GAS PO2 70.3 mmHg (80-100); ARTERIAL BLOOD GAS pH 7.43 (7.35-7.45)
[2021-03-25 06:14] LABS: MEAN CELL VOLUME 102 fl (80.0-100.0)
--- NOTE | 2021-03-25 06:27 | NUR ---
Patient had uneventful night. Alert and orientated when aroused. Resting comfortably otherwise on current sedation.
--- NOTE | 2021-03-25 07:11 | NUR ---
Report given to MEGHAN Handy
[2021-03-25 07:28] LABS: ALBUMIN 3.2 gm/dL (3.5-5.0); BILIRUBIN,TOTAL 0.8 mg/dL (0.0-1.0); CALCIUM 8.2 mg/dL (8.4-10.2); CREATININE, serum 0.75 (0.66-1.25); POTASSIUM 4.4 mmol/L (3.4-5.0); TOTAL PROTEIN 6.4 gm/dL (6.4-8.2)
[2021-03-25 07:45] LABS: BAND 3 % (0-10); BASOPHIL 2 % (0-2); EOSINOPHIL 2 % (0-4); LYMPHOCYTE 20 % (20.0-51.0); METAMYELOCYTE 1 % (0-0); NEUTROPHILS 64 % (42.0-75.2); PLATELET ESTIMATE NORMAL (NORMAL)
[2021-03-25 07:46] LABS: HYPOCHROMIA 2+
--- NOTE | 2021-03-25 10:01 | NUR ---
Update called to patient's , Farida. We will do video call the next time I go in the room.
--- NOTE | 2021-03-25 11:43 | NUR ---
Patient switched to Versed d/t high triglyceride levels. He video calls with his family at this time. He tolerates this well. Dr. Pinto here to see patient at this time as well.
--- NOTE | 2021-03-25 12:32 | NUR ---
FBI INVESTIGATOR, AIDA, DROPS FI02 TO 90%. PEEP CURRENTLY AT 12
--- NOTE | 2021-03-25 16:00 | NUR ---
RT drops FiO2 to 80%. Peep remains at 12
--- NOTE | 2021-03-25 20:42 | NUR ---
Assessment completed and charted. Patient released from restaints while in room. Patient alert, awake and orientated. Patient used tablet to type that he would like to sleep better. Provided with PRN 5mg versed bolus and increased versed dose per titration orders. Decreased enviromental stimuli. Patient called for update while in room. Update provided and and daughter said good night to patient. Agrees to bath around midnight. Denies other needs at this time.
[2021-03-26] VITALS (760 sets, daily range): BP systolic 97–164; BP diastolic 54–112; PULSE 63–78; TEMP 98.5–100.2; O2SAT 87–96
[2021-03-26 03:25] LABS: ARTERIAL BLD GAS O2 SATURATION 92.8 % (92-100); ARTERIAL BLD GAS TCO2 CT 27.6; ARTERIAL BLOOD GAS BASE EXCESS 2.5 (-2-2); ARTERIAL BLOOD GAS HCO3 26.4 meq/L (22-26); ARTERIAL BLOOD GAS PCO2 38.5 mmHg (35-45); ARTERIAL BLOOD GAS PO2 66.3 mmHg (80-100); ARTERIAL BLOOD GAS pH 7.45 (7.35-7.45)
--- NOTE | 2021-03-26 04:00 | NUR ---
Residuals elevated at 410. Tube feeds turned off and disconnected for patient.
[2021-03-26 06:10] LABS: BASO % 0.1 % (0.0-2.0); EOS # 0.2 (0.0-0.7); GRAN # 4.9 (1.4-6.5); GRAN % 60.2 % (42.2-75.2); HEMATOCRIT 46.3 % (42.0-52.0); HEMOGLOBIN 14.6 g/dl (13.5-18.0); LYMPH # 2.1 (1.2-3.4); LYMPH % 26.1 % (20.0-51.0); MEAN CELL VOLUME 102 fl (80.0-100.0); MEAN CORPUSCULAR HEMOGLOBIN 32 pg (27.0-31.0); MEAN CORPUSCULAR HGB CONC 32 g/dl (33.0-37.0); MEAN PLATELET VOLUME 10.2 fl (7.4-10.4); MONO # 0.8 (0.1-0.6); MONO % 10.4 % (1.7-9.3); PLATELET COUNT 325 K/mm3 (130-400); RED BLOOD COUNT 4.56 M/mm3 (4.20-5.60); REDCELL DISTRIBUTION WIDTH-CV 14.6 % (11.5-14.5)
--- NOTE | 2021-03-26 06:15 | NUR ---
Tube feeds 460 at this time. Feedings remain off and disconnected from patient.
[2021-03-26 06:26] LABS: ALANINE AMINOTRANSFERASE 61 U/L (4-49); ALBUMIN 3.1 gm/dL (3.5-5.0); ALKALINE PHOSPHATASE 33 U/L (50-136); ANION GAP 6 mmol/L (7-16); AST,SGOT 36 U/L (15-37); BILIRUBIN,TOTAL 1.1 mg/dL (0.0-1.0); BLOOD UREA NITROGEN 38 mg/dL (9-20); CALCIUM 8.4 mg/dL (8.4-10.2); CARBON DIOXIDE 27 mmol/L (22-30); CHLORIDE 105 mmol/L (98-107); CREATININE, serum 0.79 (0.66-1.25); GLUCOSE 113 mg/dL (74-106); POTASSIUM 3.8 mmol/L (3.4-5.0); SODIUM 138 mmol/L (137-145)
[2021-03-26 06:27] LABS: C-REACTIVE PROTEIN < 0.5 mg/dL (0.0-0.9)
--- NOTE | 2021-03-26 06:35 | NUR ---
Sedation vacation not preformed. Patient awakens easily. Follows commands. Requests to be allowed to go back to sleep. Patient had an uneventful night. Residuals high this AM. Tubes feeds off.
--- NOTE | 2021-03-26 08:05 | NUR ---
Assessment completed after obtaining report from MEGHAN iVeira. Patient is lightly sedated and wakes easily to stimulation. He responds appropriately to my conversation with him. Residual this morning was 480. Will continue to hold tube feeds.
--- NOTE | 2021-03-26 13:26 | NUR ---
This RN called , Farida, at this time with update since the patient did not want to do a video call with them. She is concerned that he is beginning to struggle with some depression. She states that the patient has had issues with depression in the past and will probably need a medication to assist him during his illness and recovery. This RN called Dr. Pinto to discuss the 's concern. She states that she will place a psych consult for tomorrow.
--- NOTE | 2021-03-26 14:16 | NUR ---
RT weans FiO2 to 65% at this time.
--- NOTE | 2021-03-26 18:00 | NUR ---
Sedation vacation not completed at this time d/t patient being able to wake appropriately to stimulation, follow commands, respond appropriately. Will continue to monitor.
--- NOTE | 2021-03-26 19:00 | NUR ---
Received report from MEGHAN Handy.
--- NOTE | 2021-03-26 19:50 | NUR ---
REPORT GIVEN TO MEGHAN TEJADA
--- NOTE | 2021-03-26 21:30 | NUR ---
Assessment complete. Patient is alert and following verbal commands. All vitals within normal limits. He continues to tolerate the ventilator well. Receiving Fentanyl, Precedex, and Versed drips. Patient assisted in video-chatting family. Bed in lowest position, all alarms on. No further needs noted.
[2021-03-27] VITALS (534 sets, daily range): BP systolic 112–156; BP diastolic 72–104; PULSE 64–82; TEMP 98.2–99.9; O2SAT 88–96
[2021-03-27 05:32] LABS: ARTERIAL BLD GAS O2 SATURATION 92.3 % (92-100); ARTERIAL BLD GAS TCO2 CT 24.9; ARTERIAL BLOOD GAS BASE EXCESS 0.4 (-2-2); ARTERIAL BLOOD GAS HCO3 23.8 meq/L (22-26); ARTERIAL BLOOD GAS PO2 65.1 mmHg (80-100); ARTERIAL BLOOD GAS pH 7.45 (7.35-7.45)
[2021-03-27 05:50] LABS: BASO % 0.3 % (0.0-2.0); EOS # 0.1 (0.0-0.7); EOS % 1.2 % (0-4.0); GRAN # 6.8 (1.4-6.5); GRAN % 69.1 % (42.2-75.2); HEMATOCRIT 43.8 % (42.0-52.0); HEMOGLOBIN 14.3 g/dl (13.5-18.0); LYMPH # 1.9 (1.2-3.4); MEAN CORPUSCULAR HEMOGLOBIN 32 pg (27.0-31.0); MEAN CORPUSCULAR HGB CONC 33 g/dl (33.0-37.0); MEAN PLATELET VOLUME 10.2 fl (7.4-10.4); MONO % 9.7 % (1.7-9.3); PLATELET COUNT 295 K/mm3 (130-400); RED BLOOD COUNT 4.51 M/mm3 (4.20-5.60); REDCELL DISTRIBUTION WIDTH-CV 14.5 % (11.5-14.5)
[2021-03-27 05:52] LABS: MEAN CELL VOLUME 97 fl (80.0-100.0)
[2021-03-27 06:00] LABS: ALBUMIN 3.2 gm/dL (3.5-5.0); BILIRUBIN,TOTAL 1.4 mg/dL (0.0-1.0); CALCIUM 8.6 mg/dL (8.4-10.2); CREATININE, serum 0.77 (0.66-1.25); MAGNESIUM 1.9 mg/dL (1.6-2.3); PHOSPHOROUS 3.9 mg/dL (2.5-4.5); POTASSIUM 3.9 mmol/L (3.4-5.0); TOTAL PROTEIN 6.1 gm/dL (6.4-8.2)
[2021-03-27 06:23] LABS: PRE ALBUMIN 47.3 mg/dL (17.6-36.0)
--- NOTE | 2021-03-27 07:00 | NUR ---
RECEIVED REPORT FROM MEGHAN HAYWARD. PT RESTING EASILY ON CURRENT VENT SETTINGS: TV 550, PEEP 12, RR 20, FIO2 65%. FC PATENT AND DRAINING TO GRAVITY. CORRECTIONAL GUARD IN PLACE. VSS. SEE GTT FLOWSHEET.
--- NOTE | 2021-03-27 08:28 | NUR ---
DR BELL AT BEDSIDE FOR ASSESSMENT AND DISCUSSING POC. PROIVDER STATES TO MAKE GTT CHANGES, SEE FLOWSHEET. PROVIDER CONCERNED THAT FENT GTT MAY BE CAUSING SOME OF THE BOWEL MOVEMENT ISSUES.
[2021-03-27 10:32] LABS: CHOLESTEROL 136 mg/dL (120-200); TRIGLYCERIDE 260 mg/dL
--- NOTE | 2021-03-27 14:46 | NUR ---
Food Production Machine Operator spoke with patient's , Farida to follow up on FMLA paperwork. Farida advised that patient sees Dr. Pimentel for primary care. GORDON contacted Dr. Pimentel's office and left a message for his RN requesting assistance with completing FMLA documents. GORDON contacted Radha, videotape sales representative with patient's employer to provide update. GORDON attended clinical rounds with the team and patient remains intubated at this time.
--- NOTE | 2021-03-27 19:00 | NUR ---
Received report from MEGHAN Nino.
--- NOTE | 2021-03-27 21:25 | NUR ---
Assessment complete. Patient tolerating ventilator well. Continues to receive fentanyl, precedex, and versed drips. All vitals within normal limits. Patient is drowsy but alert and following verbal commands. Bowel sounds hypoactive throughout abdomen. He denies feeling the urge to have a bowel movement when asked. Patient repositioned, all alarms on. No further needs noted.
[2021-03-28] VITALS (1019 sets, daily range): BP systolic 108–148; BP diastolic 75–96; PULSE 69–80; TEMP 98.7–99.2; O2SAT 88–96
[2021-03-28 04:59] LABS: ARTERIAL BLD GAS O2 SATURATION 92.4 % (92-100); ARTERIAL BLD GAS TCO2 CT 28.4; ARTERIAL BLOOD GAS BASE EXCESS 1.4 (-2-2); ARTERIAL BLOOD GAS PCO2 45.7 mmHg (35-45); ARTERIAL BLOOD GAS PO2 66.3 mmHg (80-100); ARTERIAL BLOOD GAS pH 7.39 (7.35-7.45)
[2021-03-28 05:22] LABS: BASO % 0.3 % (0.0-2.0); EOS # 0.1 (0.0-0.7); EOS % 1.1 % (0-4.0); GRAN # 8.2 (1.4-6.5); GRAN % 73.9 % (42.2-75.2); HEMATOCRIT 43.7 % (42.0-52.0); HEMOGLOBIN 13.9 g/dl (13.5-18.0); LYMPH # 1.7 (1.2-3.4); LYMPH % 15.2 % (20.0-51.0); MEAN CELL VOLUME 99 fl (80.0-100.0); MEAN CORPUSCULAR HEMOGLOBIN 32 pg (27.0-31.0); MEAN CORPUSCULAR HGB CONC 32 g/dl (33.0-37.0); MEAN PLATELET VOLUME 10.1 fl (7.4-10.4); PLATELET COUNT 265 K/mm3 (130-400); RED BLOOD COUNT 4.41 M/mm3 (4.20-5.60)
[2021-03-28 05:33] LABS: CREATININE, serum 0.69 (0.66-1.25); PHOSPHOROUS 3.7 mg/dL (2.5-4.5)
--- NOTE | 2021-03-28 07:10 | NUR ---
RECEIVED REPORT FROM MEGHAN HAYWARD. PT RESTING IN BED ON SAME VENT SETTINGS. SEE GTT FLOWSHEET. VSS. RES COUNSELOR IN PLACE. FC PATENT AND DRAINING TO GRAVTIY.
--- NOTE | 2021-03-28 11:33 | NUR ---
PT PLACED ON PS CPAP PER DR BELL FOR 25 MIN. PT TOLERATED WELL WITHOUT COMPLICATIONS, PLACED BACK ON PREVIOUS SETTINGS DOCUMENTED
--- NOTE | 2021-03-28 11:45 | NUR ---
TF INITIATED AT 10ML/HR PER ORDERS.
--- NOTE | 2021-03-28 12:30 | NUR ---
DR CARMICHAEL AT BEDSIDE FOR ASSESSMENT AND PERFORMS RECTAL EXAM FOR POSSIBLE IMPACTION. NONE NOTED. NEW ORDERS RECEIVED.
--- NOTE | 2021-03-28 14:41 | NUR ---
Dredge Pump Operator collaborated with MEGHAN Wasserman at Dr. Pimentel's office and faxed [facility] paperwork to be completed by Dr. Pimentel. Lux advised she would fax the paperwork to patient's employer upon completion. GORDON faxed paperwork to #[phone].
--- NOTE | 2021-03-28 16:00 | NUR ---
500ML ENEMA GIVEN AT 1420. NO RESULTS. SECOND 500ML GIVEN AT 1530. NO RESULTS WHEN CHECKED AT 1600. SEE MAR FOR LACTULOSE ADMINISTRATIONS STARTED PER DR CARMICHAEL'S INSTRUCTIONS.
--- NOTE | 2021-03-28 17:30 | NUR ---
SPOKE TO DR CARMICHAEL ABOUT CLARIFICATION ON HOW MANY LACTULOSE DOSES TO GIVE BEFORE CONSIDERING STOPPING IF PT HAS NOT STOOLED. PROVIDER STATES CONTINUE ORDERED THROUGH NIGHTSHIFT EVERY 2 HOURS IF PT HAS NOT GONE BY TOMORROW MORNING THEN STOP. PROVIDER ALSO STATES THAT SOON PT STARTS STOOLING, TO NOT GIVE ANYMORE DOSES THEN. PROVIDER STATES IT MAY TAKE A FEW DOSES BEFORE RESULTS ARE SEEN. SEE MAR.
[2021-03-29] VITALS (660 sets, daily range): BP systolic 77–127; BP diastolic 43–886; PULSE 72–125; TEMP 98–99.6; O2SAT 82–95
[2021-03-29 03:29] LABS: ARTERIAL BLD GAS O2 SATURATION 93.7 % (92-100); ARTERIAL BLD GAS TCO2 CT 26.7; ARTERIAL BLOOD GAS BASE EXCESS -0.3 (-2-2); ARTERIAL BLOOD GAS HCO3 25.3 meq/L (22-26); ARTERIAL BLOOD GAS PCO2 44.6 mmHg (35-45); ARTERIAL BLOOD GAS PO2 70.4 mmHg (80-100); ARTERIAL BLOOD GAS pH 7.37 (7.35-7.45)
[2021-03-29 04:34] LABS: HEMATOCRIT 46.1 % (42.0-52.0); HEMOGLOBIN 14.6 g/dl (13.5-18.0); MEAN CELL VOLUME 102 fl (80.0-100.0); MEAN CORPUSCULAR HEMOGLOBIN 32 pg (27.0-31.0); MEAN CORPUSCULAR HGB CONC 32 g/dl (33.0-37.0); MEAN PLATELET VOLUME 10.7 fl (7.4-10.4); PLATELET COUNT 301 K/mm3 (130-400); RED BLOOD COUNT 4.52 M/mm3 (4.20-5.60)
[2021-03-29 04:41] LABS: CALCIUM 8.5 mg/dL (8.4-10.2); CREATININE, serum 0.72 (0.66-1.25); MAGNESIUM 1.9 mg/dL (1.6-2.3); PHOSPHOROUS 3.6 mg/dL (2.5-4.5)
[2021-03-29 04:55] LABS: BAND 3 % (0-10); LYMPHOCYTE 15 % (20.0-51.0); METAMYELOCYTE 1 % (0-0); NEUTROPHILS 70 % (42.0-75.2)
[2021-03-29 05:02] LABS: PRE ALBUMIN 48.9 mg/dL (17.6-36.0)
[2021-03-29 05:03] LABS: ANISOCYTOSIS 1+; HYPOCHROMIA 1+; OVALOCYTES 1+; PLATELET ESTIMATE NORMAL (NORMAL); POIKILOCYTOSIS 1+
--- NOTE | 2021-03-29 07:00 | NUR ---
PT RESTING IN BED. PT INTUBATED AND SEDATED. PT IN COVID ISOLATION. WILL CONITINUE TO [facility].
--- NOTE | 2021-03-29 10:48 | NUR ---
INSERTED FECAL RECTAL MANAGEMENT SYSTEM. BALLOON FILLED WITH WATER 37 CC. FLATUS AND STOOL NOTED IN TUBE IMMEDIATELY.
--- NOTE | 2021-03-29 11:00 | NUR ---
Dr. Washington in to see patient. requested my assistance to get [facility] RN consulted and updated to have a goals of care discussion with the patients and mother.
--- NOTE | 2021-03-29 11:50 | NUR ---
Notified DR. Guadalupe and updated Dr. Washington on families descsion to go palliative care and cancel today's procedures. Also discused with Dr. Ji as he was coming to see patient for a procedure.
--- NOTE | 2021-03-29 14:20 | NUR ---
1300- PT SATING 88-90. PT REPOSITIONED, AND O2 INCREASED TO 80%. RT NOTIFIED. 1420- PT STILL SATING 88-90. O2 INCREASED TO 100%. PT HAD AN EMESIS, WHICH APPEARS TO BE TF. OG ASPIRATED WITH RESIDUAL OF 25. TF HELD. PT CLEANED, SUCTIONED, AND REPOSITIONED. NOTIFIED OF ABOVE. ORDERS FOR ABG AND CHEST XRAY.
[2021-03-29 14:45] LABS: ARTERIAL BLD GAS O2 SATURATION 90.1 % (92-100); ARTERIAL BLD GAS TCO2 CT 25.1; ARTERIAL BLOOD GAS BASE EXCESS -2.5 (-2-2); ARTERIAL BLOOD GAS HCO3 23.7 meq/L (22-26); ARTERIAL BLOOD GAS PCO2 45.6 mmHg (35-45); ARTERIAL BLOOD GAS PO2 61.3 mmHg (80-100); ARTERIAL BLOOD GAS pH 7.33 (7.35-7.45)
--- NOTE | 2021-03-29 15:03 | NUR ---
SPOKE WITH DR BELL REGARDING ABG. PT HAD ANOTHER EMESIS. TF STILL OFF. OG PUT TO LIS. PT CLEANED AND BOOSTED. CHEST XRAY DONE. VENT SETTINGS CHANGED PER . PT BECAME HYPOTENSIVE IN THE 70'S. LEVOPHED STARTED. 1535- PTS SATS UP TO 93. BP IN THE 140'S. BEDSIDE TO EVALUATE.
--- NOTE | 2021-03-29 17:00 | NUR ---
NO SEDATION VACATION GIVEN AT THIS TIME. PT ABLE TO FOLLOW ALL COMMANDS AND ANSWER YES/NO QUESTIONS. WILL CONTINUE TO [facility].
--- NOTE | 2021-03-29 17:28 | NUR ---
ATTEMPTED TO TAKE PT TO CT. WAS INTERUPTED BY AN ER PT. WHILE WAITING PT STARTED VOMITTING WHAT LOOKS AND SMELLS LIKE STOOL. PT TAKEN BACK TO UNIT. VSS. PT CLEANED AND POSITIONED. DR.SINGH SAWYER. WILL ATTEMPT LATER THIS EVENING.
--- NOTE | 2021-03-29 17:52 | NUR ---
UPDATED ON THREE EPISODES OF EMESIS, NO BOWEL SOUNDS, PLAN FOR CT, AND OG TO LIS. NO ADDITIONAL ORDERS AT THIS TIME. WILL ATTEMPT CT THIS EVENING.
[2021-03-29 19:50] LABS: ARTERIAL BLD GAS O2 SATURATION 92.1 % (92-100); ARTERIAL BLD GAS TCO2 CT 23.1; ARTERIAL BLOOD GAS BASE EXCESS -4.2 (-2-2); ARTERIAL BLOOD GAS HCO3 21.8 meq/L (22-26); ARTERIAL BLOOD GAS PO2 65.1 mmHg (80-100); ARTERIAL BLOOD GAS pH 7.32 (7.35-7.45)
--- NOTE | 2021-03-29 21:00 | NUR ---
called and asks to video chat. Done with this nurse. Patient asleep for most of call, able to only stay awake short periods of time. asks this RN if patient would be able to sign 2 checks to deposit. Told she would need to check with his bank and then again with the nurse in the morning, as of right now patient is not able to sign. Very understanding, will check in in the AM.
[2021-03-30] VITALS (652 sets, daily range): BP systolic 77–140; BP diastolic 50–85; PULSE 79–102; TEMP 98.3–101.6; O2SAT 90–99
--- NOTE | 2021-03-30 01:26 | NUR ---
To CT via bed with RNx3 and RTx2. Patient alert and restless, but follows directions well. Tolerates procedure fair. Diaphoretic and color sl dusky. Minimal UO noted prior to going to CT, but on arrival back to ICU 1 has 150ml in urometer.
--- NOTE | 2021-03-30 02:00 | NUR ---
Patient restless and awake on return to ICU. Helps staff reposition self up in bed. Temp 98.8 axillary.
--- NOTE | 2021-03-30 02:49 | NUR ---
Levophed dose increased at this time. Patient resting more comfortably, color improved after RT suctioned. Denies complaints at this time.
--- NOTE | 2021-03-30 04:53 | NUR ---
No sedation vacation at this time. RT with patient and patient agitated. Will attempt at later time
[2021-03-30 05:16] LABS: ARTERIAL BLD GAS TCO2 CT 20.9; ARTERIAL BLOOD GAS BASE EXCESS -4.8 (-2-2); ARTERIAL BLOOD GAS HCO3 19.8 meq/L (22-26); ARTERIAL BLOOD GAS PCO2 35.8 mmHg (35-45); ARTERIAL BLOOD GAS PO2 87.8 mmHg (80-100); ARTERIAL BLOOD GAS pH 7.36 (7.35-7.45)
[2021-03-30 05:25] LABS: HEMATOCRIT 45.2 % (42.0-52.0); HEMOGLOBIN 14.2 g/dl (13.5-18.0); MEAN CELL VOLUME 100 fl (80.0-100.0); MEAN CORPUSCULAR HEMOGLOBIN 31 pg (27.0-31.0); MEAN CORPUSCULAR HGB CONC 31 g/dl (33.0-37.0); MEAN PLATELET VOLUME 10.4 fl (7.4-10.4); PLATELET COUNT 304 K/mm3 (130-400); RED BLOOD COUNT 4.52 M/mm3 (4.20-5.60); REDCELL DISTRIBUTION WIDTH-CV 14.2 % (11.5-14.5)
[2021-03-30 05:35] LABS: CALCIUM 8.8 mg/dL (8.4-10.2); CREATININE, serum 1.1 (0.66-1.25); MAGNESIUM 1.9 mg/dL (1.6-2.3); PHOSPHOROUS 4.8 mg/dL (2.5-4.5); POTASSIUM 4.6 mmol/L (3.4-5.0)
--- NOTE | 2021-03-30 05:40 | NUR ---
Critical labs called to Tatiana CHRISTIANSON with [facility]. Will review with attending doctor and return call/fax orders
[2021-03-30 05:44] LABS: EOSINOPHIL 1 % (0-4); HYPOCHROMIA 2+; LYMPHOCYTE 5 % (20.0-51.0); NEUTROPHILS 90 % (42.0-75.2); PLATELET ESTIMATE NORMAL (NORMAL)
[2021-03-30 06:22] LABS: COLLECTION METHOD CLEAN CATCH
[2021-03-30 06:30] LABS: MUCOUS Present /lpf; PH 5 (5-8); SQUAMOUS EPITHELIAL 0-2 /hpf; URINE APPEARANCE Hazy; URINE BACTERIA None Seen /hpf; URINE BILIRUBIN Negative (NEGATIVE); URINE BLOOD Negative (NEGATIVE); URINE COLOR Yellow; URINE GLUCOSE Negative (NEGATIVE); URINE KETONE Negative (NEGATIVE); URINE LEUKOCYTE ESTERASE Negative (NEGATIVE); URINE NITRATE Negative (NEGATIVE); URINE PROTEIN(semi-quant) Negative (NEGATIVE); URINE RBC 0-2 /hpf; URINE UROBILINOGEN Negative (NEGATIVE)
--- NOTE | 2021-03-30 07:00 | NUR ---
PT IS INTUBATED AND SEDATED. PT ON LEVO, FENT, VERSED, AND PRECEDEX. PT RESTING BUT OPENS EYES SPONTANEOUSLY. WILL CONTINUE TO MONITOR.
--- NOTE | 2021-03-30 08:15 | NUR ---
AND BEDSIDE. UPDATED ON PT'S CT SCAN RESULTS, LABS, TEMP, VITALS, STOOL, AND HYPOACTIVE BOWEL SOUNDS. ORDERS RECEIVED FOR STOOL CULTURE AND SPUTUM CULTURE. ALSO, WILL CONTACT REGARDING [facility] COVERAGE. TYLENOL GIVEN FOR FEVER. WILL CONTINUE TO [facility].
--- NOTE | 2021-03-30 08:59 | NUR ---
PT'S MANJEET UPDATED VIA PHONE.
[2021-03-30 11:06] LABS: CLOSTRIDIUM DIFF A/B NEG; CLOSTRIDIUM DIFF A/B INTERP No C.diff present
--- NOTE | 2021-03-30 17:00 | NUR ---
PT OPENS EYE SPONTANEOUSLY. PT MOVES ALL EXTREMETIES, FOLLOWS COMMNADS, AND ANSWERS YES/NO QUESTIONS. WILL LEAVE SEDATION IT. CONTINUE TO [facility].
[2021-03-31] VITALS (714 sets, daily range): BP systolic 89–121; BP diastolic 52–87; PULSE 67–87; TEMP 97.7–98.5; O2SAT 90–98
[2021-03-31 05:09] LABS: CALCIUM 8.8 mg/dL (8.4-10.2); CREATININE, serum 0.99 (0.66-1.25); MAGNESIUM 2.2 mg/dL (1.6-2.3); PHOSPHOROUS 4.4 mg/dL (2.5-4.5); POTASSIUM 4.9 mmol/L (3.4-5.0)
[2021-03-31 07:39] LABS: BASO # 0.1 (0.0-0.2); BASO % 0.4 % (0.0-2.0); EOS # 0.3 (0.0-0.7); EOS % 1.4 % (0-4.0); GRAN # 16.1 (1.4-6.5); GRAN % 87.4 % (42.2-75.2); HEMATOCRIT 39.6 % (42.0-52.0); HEMOGLOBIN 12.5 g/dl (13.5-18.0); LYMPH # 0.8 (1.2-3.4); LYMPH % 4.1 % (20.0-51.0); MEAN CELL VOLUME 100 fl (80.0-100.0); MEAN CORPUSCULAR HEMOGLOBIN 32 pg (27.0-31.0); MEAN CORPUSCULAR HGB CONC 32 g/dl (33.0-37.0); MEAN PLATELET VOLUME 11.3 fl (7.4-10.4); MONO # 1.1 (0.1-0.6); PLATELET COUNT 210 K/mm3 (130-400); RED BLOOD COUNT 3.95 M/mm3 (4.20-5.60); REDCELL DISTRIBUTION WIDTH-CV 14.3 % (11.5-14.5)
[2021-03-31 08:36] LABS: ARTERIAL BLD GAS O2 SATURATION 95.1 % (92-100); ARTERIAL BLOOD GAS BASE EXCESS -3.1 (-2-2); ARTERIAL BLOOD GAS HCO3 21.6 meq/L (22-26); ARTERIAL BLOOD GAS PCO2 37.9 mmHg (35-45); ARTERIAL BLOOD GAS PO2 79.2 mmHg (80-100); ARTERIAL BLOOD GAS pH 7.37 (7.35-7.45)
--- NOTE | 2021-03-31 09:45 | NUR ---
Dr. Christie performed bronchcoscopy at bedside; tolerated well. Sputum sample sent down to lab.
[2021-03-31 09:55] LABS: ALBUMIN 3.1 gm/dL (3.5-5.0); BILIRUBIN,TOTAL 1.5 mg/dL (0.0-1.0)
--- NOTE | 2021-03-31 15:21 | NUR ---
Tolerating ventilator well and VS stable at this time. Will continue to monitor.
--- NOTE | 2021-03-31 23:13 | NUR ---
RT WAS UNAVAILABLE AT THIS TIME
[2021-04-01] VITALS (714 sets, daily range): BP systolic 124–157; BP diastolic 66–106; PULSE 64–113; TEMP 97.5–97.9; O2SAT 88–99
[2021-04-01 04:52] LABS: ARTERIAL BLD GAS O2 SATURATION 23.7 % (92-100); ARTERIAL BLOOD GAS HCO3 22.4 meq/L (22-26); ARTERIAL BLOOD GAS PCO2 41.1 mmHg (35-45); ARTERIAL BLOOD GAS PO2 73.5 mmHg (80-100); ARTERIAL BLOOD GAS pH 7.35 (7.35-7.45)
[2021-04-01 05:10] LABS: CALCIUM 8.9 mg/dL (8.4-10.2); CREATININE, serum 0.85 (0.66-1.25); MAGNESIUM 2.2 mg/dL (1.6-2.3); PHOSPHOROUS 3.2 mg/dL (2.5-4.5); POTASSIUM 4.3 mmol/L (3.4-5.0)
--- NOTE | 2021-04-01 05:32 | NUR ---
PATIENT IS ABLE TO FOLLOW INSTRUCTION, SMILES, APPEARS ALERT/ WELCOMING DURING VISIT WITH FAMILY CALM ALERT
[2021-04-01 07:38] LABS: BASO % 0.2 % (0.0-2.0); EOS % 0.2 % (0-4.0); GRAN # 11.4 (1.4-6.5); HEMOGLOBIN 11.5 g/dl (13.5-18.0); LYMPH # 0.5 (1.2-3.4); LYMPH % 3.7 % (20.0-51.0); MEAN CELL VOLUME 101 fl (80.0-100.0); MEAN CORPUSCULAR HEMOGLOBIN 32 pg (27.0-31.0); MEAN CORPUSCULAR HGB CONC 31 g/dl (33.0-37.0); MEAN PLATELET VOLUME 11.7 fl (7.4-10.4); MONO # 0.8 (0.1-0.6); MONO % 6.5 % (1.7-9.3); PLATELET COUNT 193 K/mm3 (130-400); RED BLOOD COUNT 3.62 M/mm3 (4.20-5.60); REDCELL DISTRIBUTION WIDTH-CV 14.1 % (11.5-14.5)
[2021-04-01 07:39] LABS: HEMATOCRIT 36.7 % (42.0-52.0)
--- NOTE | 2021-04-01 13:36 | NUR ---
Discontinued per Dr. Christie. Can increase versed and fentanyl as needed for appropriate sedation.
--- NOTE | 2021-04-01 16:00 | NUR ---
Patient wide awake and pulling at restraints after discontinuing precedex despite increasing other sedation. Dr. Christie notified . Received orders to initiate propofol and obtain a tryglyceride level.
--- NOTE | 2021-04-01 17:00 | NUR ---
Sedation vacation not performed as propofol was initiated this afternoon due to patient being wide awake and pulling at restriants after stopping precedex.
--- NOTE | 2021-04-01 18:30 | NUR ---
Resting in bed with eyes shut; tolerating ventilator well at this time.
[2021-04-02] VITALS (763 sets, daily range): BP systolic 115–182; BP diastolic 75–131; PULSE 56–111; TEMP 97.1–98.2; O2SAT 80–100
--- NOTE | 2021-04-02 03:25 | NUR ---
PT AGITATED WITH CARES, MAKING A FIST AND PUSHING IT TOWARDS STAFF. RESTLESS AND MOVING IN BED. INCREASED HR AND BP. INCREASED SEDATION DOCUMENTED.
--- NOTE | 2021-04-02 05:00 | NUR ---
SEDATION VACATION NOT COMPLETED DUE TO PT RESTING AT THIS TIME. PT BECAME AGITATED WITH CARES OVERNIGHT AND NEEDED INCREASED SEDATION.
[2021-04-02 05:01] LABS: ARTERIAL BLD GAS O2 SATURATION 96.9 % (92-100); ARTERIAL BLD GAS TCO2 CT 24.6; ARTERIAL BLOOD GAS BASE EXCESS 0.3 (-2-2); ARTERIAL BLOOD GAS HCO3 23.6 meq/L (22-26); ARTERIAL BLOOD GAS PCO2 33.8 mmHg (35-45); ARTERIAL BLOOD GAS PO2 84.1 mmHg (80-100); ARTERIAL BLOOD GAS pH 7.46 (7.35-7.45)
[2021-04-02 05:40] LABS: CALCIUM 8.9 mg/dL (8.4-10.2); CREATININE, serum 0.72 (0.66-1.25); PHOSPHOROUS 3.2 mg/dL (2.5-4.5); POTASSIUM 3.9 mmol/L (3.4-5.0)
--- NOTE | 2021-04-02 06:40 | NUR ---
PT RESTING AT THIS TIME. TOLERATING VENT WELL. VSS. RESTREPO PATENT AND DRAINING WITH ADEQUATE OUTPUT. DOUBLE LUMEN PICC RIGHT UPPER ARM. BOTH PORTS FLUSH AND ASPIRATE WELL.
--- NOTE | 2021-04-02 10:53 | NUR ---
Video chat with family initiated. Dr. Christie to call family for an update after video chat.
--- NOTE | 2021-04-02 10:54 | NUR ---
Opens eyes spontaneously. Nods head "yes" and "no" appropriately to questions. Tolerating ventilator well at this time. Will continue to monitor.
--- NOTE | 2021-04-02 14:30 | NUR ---
Propofol and vancomycin are incompatible. Discussed options with pharmacist . Will Stop propofol during vancomycin infusion. Will monitor sedation level while propofol is stopped.
--- NOTE | 2021-04-02 14:55 | NUR ---
Propofol re-initiated as patient is very alert; HR up to 110 and patient appears uncomfortable.
--- NOTE | 2021-04-02 16:00 | NUR ---
Resting with eyes shut; tolerating ventilator well. Will continue to monitor.
[2021-04-03] VITALS (654 sets, daily range): BP systolic 120–193; BP diastolic 82–125; PULSE 56–102; TEMP 97–99; O2SAT 92–100
[2021-04-03 05:15] LABS: ARTERIAL BLD GAS O2 SATURATION 97.1 % (92-100); ARTERIAL BLD GAS TCO2 CT 23.3; ARTERIAL BLOOD GAS BASE EXCESS -2.1 (-2-2); ARTERIAL BLOOD GAS HCO3 22.2 meq/L (22-26); ARTERIAL BLOOD GAS PCO2 36.9 mmHg (35-45); ARTERIAL BLOOD GAS PO2 91.8 mmHg (80-100)
--- NOTE | 2021-04-03 05:18 | NUR ---
APPROX 0000, PT BECAME AGITATED WHILE PROPOFOL WAS PAUSED FOR VANCO INFUSION. PT BECAME TACHYCARDIC, HYPERTENSIVE, TACHYPNEIC, AND RESTLESS. PRN HYDRALZINE GIVEN FOR HTN. TPN PAUSED TO MOVE VANCO TO [place] AND PROPOFOL RESTARTED. PT DID SETTLE DOWN AFTER PROPOFOL RESTARTED. SEDATION VACATION NOT DONE THIS RN HAD TO INCREASE SEDATION AGAIN AT APPROX 0415 DUE TO RESTLESSNESS, TACHYCARDIA, HTN, AND TACHYPNEA.
[2021-04-03 05:35] LABS: CALCIUM 8.9 mg/dL (8.4-10.2); CREATININE, serum 0.65 (0.66-1.25); MAGNESIUM 1.9 mg/dL (1.6-2.3); PHOSPHOROUS 3.5 mg/dL (2.5-4.5); POTASSIUM 3.7 mmol/L (3.4-5.0)
--- NOTE | 2021-04-03 07:00 | NUR ---
PT INTUBATED AND SEDATED. PT ON PROPOFOL, VERSED, FENT, AND TPN. VSS. WILL CONITNUE TO MONTIOR.
[2021-04-03 08:19] LABS: BASO % 0.1 % (0.0-2.0); EOS % 0.2 % (0-4.0); GRAN # 8.9 (1.4-6.5); GRAN % 85.8 % (42.2-75.2); HEMOGLOBIN 11.5 g/dl (13.5-18.0); LYMPH # 0.6 (1.2-3.4); LYMPH % 5.7 % (20.0-51.0); MEAN CELL VOLUME 99 fl (80.0-100.0); MEAN CORPUSCULAR HEMOGLOBIN 32 pg (27.0-31.0); MEAN CORPUSCULAR HGB CONC 32 g/dl (33.0-37.0); MEAN PLATELET VOLUME 11.3 fl (7.4-10.4); MONO # 0.8 (0.1-0.6); MONO % 7.7 % (1.7-9.3); PLATELET COUNT 214 K/mm3 (130-400); RED BLOOD COUNT 3.62 M/mm3 (4.20-5.60); REDCELL DISTRIBUTION WIDTH-CV 14.1 % (11.5-14.5)
--- NOTE | 2021-04-03 09:16 | NUR ---
CONSULT CALLED TO ENT FOR TRACH. MESSAGE LEFT WITH FOR CONSULT FOR PEG TUBE.
--- NOTE | 2021-04-03 10:31 | NUR ---
Sheet Metal Supervisor spoke with Dr. Christie who advised patient will have trach/peg soon and that he spoke with patient's about referral to [facility]. SW contacted Paulino at [facility] and faxed referral. SW then contacted , Farida to provide update.
--- NOTE | 2021-04-03 17:41 | NUR ---
Pt became bradycardic with hr down to 47. All sedation stopped. Pt's other VSS. Pt's pupils responsive, Pt openes eye to pain, Pt moves all extremeties, but will not follow commands at this time. Hr ranging from 50-70. Will continue to hold sedation until pt more awake and HR maintaining over 60. Will continue to monitor.
[2021-04-04] VITALS (663 sets, daily range): BP systolic 104–171; BP diastolic 65–117; PULSE 60–130; TEMP 97.7–99; O2SAT 90–99
--- NOTE | 2021-04-04 05:06 | NUR ---
ATTEMPTED TO TURN SEDATION DOWN, PT BECAME TACHYCARDIC AND HYPERTENSIVE. SEDATION REMAINS AT PREVIOUS RATE.
[2021-04-04 05:37] LABS: BASO % 0.1 % (0.0-2.0); EOS # 0.1 (0.0-0.7); EOS % 0.6 % (0-4.0); GRAN # 8.8 (1.4-6.5); GRAN % 83.2 % (42.2-75.2); HEMOGLOBIN 11.2 g/dl (13.5-18.0); LYMPH # 0.7 (1.2-3.4); LYMPH % 6.7 % (20.0-51.0); MEAN CELL VOLUME 101 fl (80.0-100.0); MEAN CORPUSCULAR HEMOGLOBIN 32 pg (27.0-31.0); MEAN CORPUSCULAR HGB CONC 32 g/dl (33.0-37.0); MEAN PLATELET VOLUME 11.4 fl (7.4-10.4); MONO # 0.9 (0.1-0.6); MONO % 8.9 % (1.7-9.3); PLATELET COUNT 218 K/mm3 (130-400); RED BLOOD COUNT 3.49 M/mm3 (4.20-5.60); REDCELL DISTRIBUTION WIDTH-CV 14.1 % (11.5-14.5)
[2021-04-04 05:45] LABS: HEMATOCRIT 35.4 % (42.0-52.0)
[2021-04-04 05:47] LABS: CALCIUM 8.8 mg/dL (8.4-10.2); CREATININE, serum 0.65 (0.66-1.25); MAGNESIUM 1.9 mg/dL (1.6-2.3); PHOSPHOROUS 3.5 mg/dL (2.5-4.5); POTASSIUM 4.1 mmol/L (3.4-5.0)
[2021-04-04 05:47] LABS: ARTERIAL BLD GAS TCO2 CT 28.6; ARTERIAL BLOOD GAS BASE EXCESS 2.9 (-2-2); ARTERIAL BLOOD GAS HCO3 27.4 meq/L (22-26); ARTERIAL BLOOD GAS PCO2 41.5 mmHg (35-45); ARTERIAL BLOOD GAS PO2 84.3 mmHg (80-100); ARTERIAL BLOOD GAS pH 7.44 (7.35-7.45)
--- NOTE | 2021-04-04 07:00 | NUR ---
PT IS INTUBATED AND RESTLESS. PT IS HYPERTENSIVE AND TACHYCARDIC. WILL INCREASE SEDATION AND GIVE PRN HYDRALAZINE. WILL CONTINUE TO MONTIOR.
--- NOTE | 2021-04-04 09:20 | NUR ---
CALLED FOR CONSULT AND JYOTI COATS ANSWERED PHONE. NOTIFIED OF CONSULT FOR PEG TUBE. ENT CALLED FOR TRACH CONSULT AND MESSAGE LEFT.
--- NOTE | 2021-04-04 10:00 | NUR ---
STATED THAT PER CHEST XRAY OG NEEDS ADVANCED BY 5CM. OG ADVANCED FROM 68-73CM. WILL CONINTUE TO MONTIOR.
--- NOTE | 2021-04-04 10:01 | NUR ---
RN CALLED THIS RN AND STATES PT IS SCHEDULED FOR TRACH AND PEG TOMORROW 04/05 1500. THIS RN CALLED OR DIRECTOR OF GLOBAL SALES AND CONFIRMED OR TIME TOMORROW AT 1500. WILL CALL AND UPDATE PT'S MANJEET.
--- NOTE | 2021-04-04 16:08 | NUR ---
Patient is scheduled to have trach/peg placement tomorrow. GORDON contacted Paulino at [facility] to provide update. Paulino requested clinical updates tomorrow.
--- NOTE | 2021-04-04 22:07 | NUR ---
PATIENT AWAKENS EASILY WILL NOD HEAD TO SIMPLE QUESTIONS, RESPONDS TO VIA TABLET ZOOM WITH FAMILY, DENIES PAIN WITH NOD OF HEAD
[2021-04-05] VITALS (703 sets, daily range): BP systolic 98–187; BP diastolic 67–134; PULSE 64–125; TEMP 97.7–98.6; O2SAT 85–99
[2021-04-05 04:26] LABS: BASO % 0.1 % (0.0-2.0); EOS # 0.2 (0.0-0.7); EOS % 1.7 % (0-4.0); GRAN # 9.3 (1.4-6.5); GRAN % 81.9 % (42.2-75.2); HEMATOCRIT 37.1 % (42.0-52.0); HEMOGLOBIN 12.4 g/dl (13.5-18.0); LYMPH % 8.4 % (20.0-51.0); MEAN CELL VOLUME 98 fl (80.0-100.0); MEAN CORPUSCULAR HEMOGLOBIN 33 pg (27.0-31.0); MEAN CORPUSCULAR HGB CONC 33 g/dl (33.0-37.0); MEAN PLATELET VOLUME 10.8 fl (7.4-10.4); MONO # 0.8 (0.1-0.6); MONO % 6.9 % (1.7-9.3); PLATELET COUNT 205 K/mm3 (130-400); RED BLOOD COUNT 3.78 M/mm3 (4.20-5.60); REDCELL DISTRIBUTION WIDTH-CV 14.1 % (11.5-14.5)
[2021-04-05 04:37] LABS: BILIRUBIN,TOTAL 0.4 mg/dL (0.0-1.0); CALCIUM 8.6 mg/dL (8.4-10.2); CREATININE, serum 0.59 (0.66-1.25); MAGNESIUM 1.9 mg/dL (1.6-2.3); PHOSPHOROUS 3.2 mg/dL (2.5-4.5); POTASSIUM 4.1 mmol/L (3.4-5.0)
[2021-04-05 04:44] LABS: PRE ALBUMIN 39.1 mg/dL (17.6-36.0)
--- NOTE | 2021-04-05 08:30 | NUR ---
Ok to administer am dose of Lovenox. Hold evening dose.
--- NOTE | 2021-04-05 08:38 | NUR ---
Propofol discontinued per Dr. Christie due to elevated triglycerides. Will re-initiate precedex.
--- NOTE | 2021-04-05 08:48 | NUR ---
After discontinuing propofol patient's became more restless and hyperalert; HR elevated 120-140's. Dr. Christie notified and ordered to increase sedation as needed for appropriate sedation.
[2021-04-05 09:02] LABS: 12 HR URINE TOTAL VOLUME 0.85 L
--- NOTE | 2021-04-05 11:49 | NUR ---
Patient lightly sedated but calm and tolerating ventilator well. VS stable; will continue to monitor.
--- NOTE | 2021-04-05 15:04 | NUR ---
Discussed care with Dr. Patterson. Ok to remove from isolations precautions today. MEGHAN Browning notiifed as well.
--- NOTE | 2021-04-05 15:58 | NUR ---
Pump Oiler faxed clinical updates to Paulino at [facility] who advised he has submitted for authorization. Patient to discharge to [facility] once authorization is obtained.
--- NOTE | 2021-04-05 16:48 | NUR ---
Returned from OR with Anethesia and INFORMATION ASSURANCE MANAGER. RT at bedside to reutrn to prior ventilator settings. Patient awake with elevated HR. Sedation re-started at previous settings. Coughing occasionally but tolerating trach. Will continue to monitor.
--- NOTE | 2021-04-05 19:15 | NUR ---
Received report from MEGHAN Santiago.
--- NOTE | 2021-04-05 20:11 | NUR ---
Updated on patient status via telelphone. All questions and concerns addressed at this time.
[2021-04-06] VITALS (683 sets, daily range): BP systolic 109–166; BP diastolic 70–120; PULSE 67–166; TEMP 98.6–99.7; O2SAT 88–96
[2021-04-06 04:23] LABS: BASO % 0.1 % (0.0-2.0); EOS # 0.4 (0.0-0.7); GRAN # 8.4 (1.4-6.5); GRAN % 77.1 % (42.2-75.2); HEMATOCRIT 34.3 % (42.0-52.0); HEMOGLOBIN 11.1 g/dl (13.5-18.0); LYMPH # 1.2 (1.2-3.4); LYMPH % 10.5 % (20.0-51.0); MEAN CELL VOLUME 98 fl (80.0-100.0); MEAN CORPUSCULAR HEMOGLOBIN 32 pg (27.0-31.0); MEAN CORPUSCULAR HGB CONC 32 g/dl (33.0-37.0); MEAN PLATELET VOLUME 10.7 fl (7.4-10.4); MONO # 0.8 (0.1-0.6); MONO % 7.4 % (1.7-9.3); PLATELET COUNT 219 K/mm3 (130-400); RED BLOOD COUNT 3.51 M/mm3 (4.20-5.60); REDCELL DISTRIBUTION WIDTH-CV 14.2 % (11.5-14.5)
[2021-04-06 04:26] LABS: ARTERIAL BLD GAS O2 SATURATION 94.2 % (92-100); ARTERIAL BLD GAS TCO2 CT 27.6; ARTERIAL BLOOD GAS BASE EXCESS 2.6 (-2-2); ARTERIAL BLOOD GAS HCO3 26.4 meq/L (22-26); ARTERIAL BLOOD GAS PCO2 37.9 mmHg (35-45); ARTERIAL BLOOD GAS PO2 72.5 mmHg (80-100); ARTERIAL BLOOD GAS pH 7.46 (7.35-7.45)
[2021-04-06 04:38] LABS: CALCIUM 8.4 mg/dL (8.4-10.2); CREATININE, serum 0.71 (0.66-1.25); POTASSIUM 4.1 mmol/L (3.4-5.0)
--- NOTE | 2021-04-06 05:29 | NUR ---
Patient has fresh trach. No sedation vacation performed at this time.
--- NOTE | 2021-04-06 07:15 | NUR ---
Patient restless in bed; moving all four extremities and pulling at restraints HR up to the 150's in ST. Attempted to use verbal cues to calm patient and sedation increased.
--- NOTE | 2021-04-06 13:26 | NUR ---
Election Assistant faxed vent settings to Paulino at [facility] who advised he is still awaiting insurance authorization.
--- NOTE | 2021-04-06 15:29 | NUR ---
at bedside. Provided education on sedation and keeping a quiet and calm enviroment for the patient.
--- NOTE | 2021-04-06 18:27 | NUR ---
Sedation vacation not performed; patient arouses very easily and able to follow commands while on sedation. Has periods of restlessness and agitation with even minimal stimulation. Will continue to monitor.
--- NOTE | 2021-04-06 18:57 | NUR ---
Dr. Christie requested Fentanyl drip be decreased to 150 mcg/min at this time. Can increase other sedation to keep patient calm.
--- NOTE | 2021-04-06 19:05 | NUR ---
RECEIVED REPORT FROM MEGHAN PLATA.
[2021-04-07] VITALS (693 sets, daily range): BP systolic 95–148; BP diastolic 62–105; PULSE 60–99; TEMP 99.4–100.9; O2SAT 73–100
[2021-04-07 04:04] LABS: ARTERIAL BLD GAS O2 SATURATION 95.7 % (92-100); ARTERIAL BLD GAS TCO2 CT 26.8; ARTERIAL BLOOD GAS BASE EXCESS 2.1 (-2-2); ARTERIAL BLOOD GAS HCO3 25.7 meq/L (22-26); ARTERIAL BLOOD GAS PCO2 36.5 mmHg (35-45); ARTERIAL BLOOD GAS pH 7.47 (7.35-7.45)
--- NOTE | 2021-04-07 04:49 | NUR ---
Excessive bleeding noted from patient's trach. Blood clots noted in vent circuit. Patient's trach collar and draw sheet saturated. RTs Ivy and Aubrey at bedside. Circuit and linens exchanged. Mraitza notified. CBC obtained and Lovenox placed on hold.
[2021-04-07 04:54] LABS: HEMOGLOBIN 11.7 g/dl (13.5-18.0); MEAN CELL VOLUME 96 fl (80.0-100.0); MEAN CORPUSCULAR HEMOGLOBIN 32 pg (27.0-31.0); MEAN CORPUSCULAR HGB CONC 33 g/dl (33.0-37.0); MEAN PLATELET VOLUME 10.2 fl (7.4-10.4); PLATELET COUNT 226 K/mm3 (130-400)
[2021-04-07 04:56] LABS: HEMATOCRIT 35.6 % (42.0-52.0)
[2021-04-07 05:06] LABS: CALCIUM 8.8 mg/dL (8.4-10.2); CREATININE, serum 0.65 mg/dL (0.72-1.25); MAGNESIUM 1.6 mg/dL (1.6-2.6); PHOSPHOROUS 3.1 mg/dL (2.3-4.7); POTASSIUM 3.8 mmol/L (3.5-4.5)
[2021-04-07 05:48] LABS: BAND 10 % (0-10); BASOPHIL 2 % (0-2); EOSINOPHIL 6 % (0-4); LYMPHOCYTE 11 % (20.0-51.0); METAMYELOCYTE 2 % (0-0); NEUTROPHILS 65 % (42.0-75.2); PLATELET ESTIMATE NORMAL (NORMAL)
[2021-04-07 05:50] LABS: POIKILOCYTOSIS 1+
[2021-04-07 05:51] LABS: ANISOCYTOSIS 1+
[2021-04-07 05:52] LABS: TEAR DROP CELLS 1+
--- NOTE | 2021-04-07 07:30 | NUR ---
REPORT RECEIVED FROM MEGHAN HAYWARD
--- NOTE | 2021-04-07 09:30 | NUR ---
RECEIVED PHONE CALL FROM KENZIE (PATIENT'S NEPHEW) ASKING IF HE AND THE PATIENT'S SISTER COULD COME VISIT THE PATIENT "BEFORE THEY TAKE HER OFF THE VENTILATOR." I REPSOND WITH GETTING HIS CONTACT INFORMATION SO I CAN GET ALL DETAILS ABOUT PLAN OF CARE PRIOR TO DISCUSSING HAVING VISITORS COME IN. MATTHEW, RN FOR HEMODIALYSIS, IS HER SETTING UP. I ASK HER TO CALL DR DAVIS TO CLARIFY PLAN AND MAKE SURE WE ARE STILL DOING DIALYSIS ON THIS PATIENT BASED OFF THE PHONE CALL I JUST RECEIVED. SHE CALLS DR. DAVIS WHO STATES THAT TAKING HER OFF THE VENTILATOR IS NOT PART OF THE PLAN AT THIS TIME AND TO PROCEED WITH DIALYSIS. SHE STATES THAT HE WAS ANGRY WITH HER ON THE PHONE FOR ASKING ABOUT TAKING HER OFF THE VENTILATOR. I WILL AWAIT FURTHER INFORMATION ABOUT THE PLAN OF CARE FOR THIS PATIENT
--- NOTE | 2021-04-07 09:30 | NUR ---
PATIENT'S HERE TO SEE HIM.
--- NOTE | 2021-04-07 10:45 | NUR ---
PATIENT IS HAVING INTERMITTENT EPISODES OF AGITATION AND ELEVATED HEART RATE. HEART RATE GETS ELEVATED INTO THE 150-160s AT TIMES UNTIL WE ARE ABLE TO GET HIM CALMED DOWN. SEDATION STILL RUNNING AND SEROQUEL ADDED TO EMAR PER VERBAL ORDER FROM DR. BELL. ATTEMPTING TO CALM PATIENT AT BEDSIDE. HE APPEARS TO BE QUITE DELIRIOUS.
--- NOTE | 2021-04-07 14:03 | NUR ---
Poultryman contacted Paulino at [facility] who advised everything has been submitted to patient's insurance, they are just awaiting a response. Paulino advised if they do not hear anything by the end of the day, he will need updates Saturday. Discharge Plan: [facility] pending insurance approval
--- NOTE | 2021-04-07 16:30 | NUR ---
Patient resting very comfortably after went home. VS much more relaxed with HR in 60s and BP 90s/60s
--- NOTE | 2021-04-07 19:15 | NUR ---
Received report from MEGHAN Handy.
[2021-04-08] VITALS (691 sets, daily range): BP systolic 65–157; BP diastolic 32–119; PULSE 65–161; TEMP 98.1–100.1; O2SAT 85–98
--- NOTE | 2021-04-08 01:00 | NUR ---
Patient's , Lianna, calls for update.
[2021-04-08 03:13] LABS: ARTERIAL BLD GAS TCO2 CT 29.5; ARTERIAL BLOOD GAS BASE EXCESS 3.1 (-2-2); ARTERIAL BLOOD GAS HCO3 28.1 meq/L (22-26); ARTERIAL BLOOD GAS PO2 88.4 mmHg (80-100); ARTERIAL BLOOD GAS pH 7.41 (7.35-7.45)
--- NOTE | 2021-04-08 03:55 | NUR ---
PT HAS ADAMANTLY REFUSED ORAL SWABS THROUGHOUT SHIFT
[2021-04-08 05:58] LABS: HEMOGLOBIN 11.8 g/dl (13.5-18.0); MEAN CELL VOLUME 97 fl (80.0-100.0); MEAN CORPUSCULAR HEMOGLOBIN 32 pg (27.0-31.0); MEAN CORPUSCULAR HGB CONC 33 g/dl (33.0-37.0); MEAN PLATELET VOLUME 10.4 fl (7.4-10.4); PLATELET COUNT 251 K/mm3 (130-400); RED BLOOD COUNT 3.73 M/mm3 (4.20-5.60)
[2021-04-08 06:00] LABS: HEMATOCRIT 36.1 % (42.0-52.0)
[2021-04-08 06:17] LABS: CALCIUM 8.9 mg/dL (8.4-10.2); CREATININE, serum 0.65 mg/dL (0.72-1.25); POTASSIUM 4.4 mmol/L (3.5-4.5)
[2021-04-08 06:47] LABS: BAND 6 % (0-10); BASOPHIL 1 % (0-2); EOSINOPHIL 9 % (0-4); LYMPHOCYTE 16 % (20.0-51.0); METAMYELOCYTE 2 % (0-0); NEUTROPHILS 59 % (42.0-75.2); PLATELET ESTIMATE NORMAL (NORMAL); POIKILOCYTOSIS 1+
[2021-04-08 06:48] LABS: HYPOCHROMIA 1+
[2021-04-08 06:50] LABS: TEAR DROP CELLS 1+
[2021-04-08 06:51] LABS: OVALOCYTES 1+
--- NOTE | 2021-04-08 07:23 | NUR ---
REPORT GIVEN TO MEGHAN ROSE.
--- NOTE | 2021-04-08 07:25 | NUR ---
HME IN PLACE FOR HUMIDITY.
--- NOTE | 2021-04-08 08:42 | NUR ---
BEDSIDE REPORT WAS DONE AND MR. CHRISTIANSON LOOKED AGITATED PULLING AT HIS LINES AND BLANKET. THIS RN REORIENTATED HIM TO PLACE AND TIME, AND REASURED HIM THAT HE IS SAFE AND BEING TAKEN CARE OF. MR. WEINSTEIN HEART RATE WILL GO UP TO THE 140S WHEN AGGITATED. WILL CONTINUE TO MONITOR
--- NOTE | 2021-04-08 11:55 | NUR ---
HME CHANGED AT THIS TIME
--- NOTE | 2021-04-08 12:08 | NUR ---
MR. CHRISTIANSON HAS BEEN VERY AGITATED IN BETWEEN HIS WAKE AND SLEEP TIMES. HIS HEART WILL INCREASE INTO THE 140S AND HE WILL START PULLING AT HIS LINES AND RESTRAINTS. SEDATION MEDS HAVE BEEN INCREASED FOR COMFORT. PHYSICIAN HAS BEEN NOTIFIED. WILL CONTINUE TO MONITOR
--- NOTE | 2021-04-08 17:51 | NUR ---
PATIENT HAS BEEN TITRATED ON DRIPS THROUGHOUT THE DAY, INCREASING AND DECREASING THROUGHOUT THE DAY. WHEHN SEDATION IS LOWERED THE PATIENT BECOMES VERY AGITATED AND WHEN THE SEDATION IS INCREASED THE PATIENT HAS ASIGNIFICANT LOWERING OF BLOOD PRESSURE. PATIENT WILL STILL AROUSE TO VOICE AND MENTATION IS INTACT. WILL CONTINUE TO MONITOR AND CHANGE NEEDED
[2021-04-09] VITALS (692 sets, daily range): BP systolic 72–198; BP diastolic 32–126; PULSE 64–156; TEMP 98.5–100.8; O2SAT 84–99
[2021-04-09 05:06] LABS: MEAN CELL VOLUME 101 fl (80.0-100.0); MEAN CORPUSCULAR HEMOGLOBIN 32 pg (27.0-31.0); MEAN CORPUSCULAR HGB CONC 32 g/dl (33.0-37.0); MEAN PLATELET VOLUME 10.2 fl (7.4-10.4); PLATELET COUNT 221 K/mm3 (130-400); RED BLOOD COUNT 3.39 M/mm3 (4.20-5.60); REDCELL DISTRIBUTION WIDTH-CV 14.3 % (11.5-14.5)
[2021-04-09 05:09] LABS: HEMATOCRIT 34.2 % (42.0-52.0)
[2021-04-09 05:33] LABS: BAND 1 % (0-10); EOSINOPHIL 3 % (0-4); LYMPHOCYTE 10 % (20.0-51.0); NEUTROPHILS 83 % (42.0-75.2)
[2021-04-09 05:34] LABS: ANISOCYTOSIS 1+; HYPOCHROMIA 1+; OVALOCYTES 1+; PLATELET ESTIMATE NORMAL (NORMAL); POIKILOCYTOSIS 1+
[2021-04-09 05:59] LABS: CALCIUM 8.6 mg/dL (8.4-10.2); CREATININE, serum 0.95 mg/dL (0.72-1.25); POTASSIUM 4.4 mmol/L (3.5-4.5)
--- NOTE | 2021-04-09 08:06 | NUR ---
HME CHANGED AT THIS TIME.
--- NOTE | 2021-04-09 08:58 | NUR ---
0800- Report received this am from MEGHAN Palma. Lines and medications verified. PT is agitated this morning, throwing legs out of the bed, tensing his face and pulling his arms towards his throat. PT does seem to calm a bit with reorientation and assurance, however HR remains high along with BP. Versed titrated as ordered. 0900- Pt is currently resting in bed with HR in 70s SR and appears comfortable.
--- NOTE | 2021-04-09 12:58 | NUR ---
Report given to MEGHAN White. Care relinquished at this time
--- NOTE | 2021-04-09 17:00 | NUR ---
Pt aggitated. Pt able to nonverbally communicate that he is not experiencing pain, and is not uncomfortable - only that pt wishes to get out of here. Reorientation and education provided - pt has no interest in provided education
[2021-04-10] VITALS (678 sets, daily range): BP systolic 83–168; BP diastolic 20–107; PULSE 64–148; TEMP 99.1–100.4; O2SAT 80–99
[2021-04-10 05:11] LABS: ARTERIAL BLD GAS O2 SATURATION 95.7 % (92-100); ARTERIAL BLD GAS TCO2 CT 24.8; ARTERIAL BLOOD GAS BASE EXCESS 0.4 (-2-2); ARTERIAL BLOOD GAS HCO3 23.8 meq/L (22-26); ARTERIAL BLOOD GAS PCO2 34.3 mmHg (35-45); ARTERIAL BLOOD GAS PO2 79.9 mmHg (80-100); ARTERIAL BLOOD GAS pH 7.46 (7.35-7.45)
[2021-04-10 05:59] LABS: BASO % 0.3 % (0.0-2.0); EOS % 10.1 % (0-4.0); GRAN # 7.1 (1.4-6.5); GRAN % 71.2 % (42.2-75.2); HEMOGLOBIN 10.8 g/dl (13.5-18.0); LYMPH # 1.1 (1.2-3.4); LYMPH % 10.9 % (20.0-51.0); MEAN CELL VOLUME 98 fl (80.0-100.0); MEAN CORPUSCULAR HEMOGLOBIN 32 pg (27.0-31.0); MEAN CORPUSCULAR HGB CONC 33 g/dl (33.0-37.0); MEAN PLATELET VOLUME 10.5 fl (7.4-10.4); MONO # 0.7 (0.1-0.6); MONO % 6.8 % (1.7-9.3); PLATELET COUNT 202 K/mm3 (130-400); RED BLOOD COUNT 3.37 M/mm3 (4.20-5.60); REDCELL DISTRIBUTION WIDTH-CV 14.1 % (11.5-14.5)
[2021-04-10 06:18] LABS: CALCIUM 8.6 mg/dL (8.4-10.2); CREATININE, serum 0.75 mg/dL (0.72-1.25); MAGNESIUM 1.5 mg/dL (1.6-2.6); PHOSPHOROUS 2.8 mg/dL (2.3-4.7); POTASSIUM 3.6 mmol/L (3.5-4.5)
--- NOTE | 2021-04-10 07:37 | NUR ---
PT REFUSED ORAL CARE WHEN OFFERED THROUGHOUT SHIFT
--- NOTE | 2021-04-10 11:22 | NUR ---
Electrotype Caster faxed updates to Paulino at [facility] who advised he should hear back from patient's insurance today.
--- NOTE | 2021-04-10 15:25 | NUR ---
Machine Pan Greaser spoke with Paulino at [facility] who still has not heard back from insurance. Paulino advised once they have authorization, he will do his best to get patient to a bed in [place], however patient may have to be transferred to a bed in [place], [place], or [place] depending on bed availablility. SW contacted patient's , Farida to provide update. Farida is agreeable to transfer to whatever [facility] facility has a bed available.
--- NOTE | 2021-04-10 16:50 | NUR ---
Pt restless, PICC to right upper arm noted to be pulled out 15cm, infusing medications paused, STAT xray ordered by MD Pratik when notified via telephone. MD Sandrita stated PICC placement satisfactory, but will require advancement tomorrow by AIVS. MD Pratik okay with continued use as well. Medications resumed. Still able to aspirate blood. PICC care provided, sterile dressing applied, re-inforced with tape and HEBER wrap. Pt's updated on event
--- NOTE | 2021-04-10 21:42 | NUR ---
MR CHRISTIANSON IS RESTING IN BED WITH VENT SETTINGS SPONTANOUS AND DOING WELL. HE IS ASLEEP BUT EASILY TO AROUSE AND APPEARS TO BE IN NO DISTRESS
[2021-04-11] VITALS (658 sets, daily range): BP systolic 94–162; BP diastolic 60–108; PULSE 69–124; TEMP 98.8–99.2; O2SAT 71–99
--- NOTE | 2021-04-11 03:58 | NUR ---
MR. ROMERO HAS BEEN VERY AGITATED INCREASING HIS HEART RATE INTO THE 150S. PATIENT HAS BEEN REORIENTATED AND TOLD HE IS SAFE WITHOUT ANY CHANGES TO VITALS OR PULLING AT LINES AND GOWN. INCREASE IN SEDATION IS NEEDED AT THIS TIME.
[2021-04-11 05:18] LABS: BASO # 0.1 (0.0-0.2); BASO % 0.5 % (0.0-2.0); EOS # 0.4 (0.0-0.7); EOS % 3.5 % (0-4.0); GRAN # 8.4 (1.4-6.5); GRAN % 78.7 % (42.2-75.2); HEMATOCRIT 32.8 % (42.0-52.0); HEMOGLOBIN 10.4 g/dl (13.5-18.0); LYMPH % 9.2 % (20.0-51.0); MEAN CELL VOLUME 100 fl (80.0-100.0); MEAN CORPUSCULAR HEMOGLOBIN 32 pg (27.0-31.0); MEAN CORPUSCULAR HGB CONC 32 g/dl (33.0-37.0); MEAN PLATELET VOLUME 10.4 fl (7.4-10.4); MONO # 0.8 (0.1-0.6); MONO % 7.6 % (1.7-9.3); PLATELET COUNT 201 K/mm3 (130-400); RED BLOOD COUNT 3.29 M/mm3 (4.20-5.60); REDCELL DISTRIBUTION WIDTH-CV 13.9 % (11.5-14.5)
--- NOTE | 2021-04-11 05:21 | NUR ---
Placed pt in CPAP 10 with pressure support 10 for a period last night while pt was awake and calm. Pt did very will for more than an hour. Hopes to continue weaning efforts if pt tolerates.
[2021-04-11 05:34] LABS: CALCIUM 8.2 mg/dL (8.4-10.2); CREATININE, serum 0.7 mg/dL (0.72-1.25); MAGNESIUM 1.6 mg/dL (1.6-2.6)
[2021-04-11 05:55] LABS: ARTERIAL BLD GAS O2 SATURATION 94.1 % (92-100); ARTERIAL BLD GAS TCO2 CT 29.4; ARTERIAL BLOOD GAS BASE EXCESS 4.3 (-2-2); ARTERIAL BLOOD GAS HCO3 28.2 meq/L (22-26); ARTERIAL BLOOD GAS PCO2 39.3 mmHg (35-45); ARTERIAL BLOOD GAS PO2 69.5 mmHg (80-100); ARTERIAL BLOOD GAS pH 7.47 (7.35-7.45)
--- NOTE | 2021-04-11 06:23 | NUR ---
MR. CHRISTIANSON WAS VERY AGGITATED THROUGHOUT THE NIGHT AND TITRATIONS TOSEDATIONSARE BEING MADE
--- NOTE | 2021-04-11 07:59 | NUR ---
Report received from MEGHAN Salvador. Patient currently sedated, on ventilator, levophed infusing at least dose possible. All drips and vent settings reviewed.
--- NOTE | 2021-04-11 09:00 | NUR ---
Ayanna here to do PICC exchange.
--- NOTE | 2021-04-11 12:00 | NUR ---
, Lianna, here to visit. He becomes tachycardic and and tries to communicate with her repeatedly. His heart rate gets as high as 130s. He is encouraged to try to rest and not get himself so worked up.
--- NOTE | 2021-04-11 13:54 | NUR ---
Can Pusher spoke with Paulino, Clinical Liason at [facility] who advised they have obtained insurance authorization and anticipate having a bed in [place] available over the next few days. SW facilitated a meeting between Paulino and patient's , Farida. Discharge Plan: [facility] pending bed availability.
--- NOTE | 2021-04-11 15:30 | NUR ---
Patient resting much more easy now. HR in 70s and BP is much improved.
--- NOTE | 2021-04-11 19:57 | NUR ---
REPORT GIVEN TO MEGHAN PASCUAL
--- NOTE | 2021-04-11 20:33 | NUR ---
PATIENT ACTIVE IN BED, ATTEMPTING TO REMOVED CLOTHING, LEGS APPEAR OVER THE SIDE OF BED, PATIENT MOUTHS WORDS WILL MAKE EYE CONTACT, SMILES, THEN WILL BE ASLEEP, WILL CONTINUE TO MONITOR
[2021-04-12] VITALS (454 sets, daily range): BP systolic 95–156; BP diastolic 60–110; PULSE 68–144; TEMP 99.1–99.8; O2SAT 77–98
[2021-04-12 04:09] LABS: BASO % 0.3 % (0.0-2.0); EOS # 0.5 (0.0-0.7); EOS % 4.2 % (0-4.0); GRAN # 8.4 (1.4-6.5); GRAN % 71.2 % (42.2-75.2); HEMOGLOBIN 10.8 g/dl (13.5-18.0); LYMPH % 16.6 % (20.0-51.0); MEAN CELL VOLUME 100 fl (80.0-100.0); MEAN CORPUSCULAR HEMOGLOBIN 32 pg (27.0-31.0); MEAN CORPUSCULAR HGB CONC 32 g/dl (33.0-37.0); MEAN PLATELET VOLUME 10.2 fl (7.4-10.4); MONO # 0.9 (0.1-0.6); MONO % 7.3 % (1.7-9.3); PLATELET COUNT 223 K/mm3 (130-400); REDCELL DISTRIBUTION WIDTH-CV 14.2 % (11.5-14.5)
[2021-04-12 04:11] LABS: HEMATOCRIT 34.1 % (42.0-52.0)
[2021-04-12 04:17] LABS: ARTERIAL BLD GAS O2 SATURATION 94.8 % (92-100); ARTERIAL BLD GAS TCO2 CT 32.5; ARTERIAL BLOOD GAS BASE EXCESS 6.2 (-2-2); ARTERIAL BLOOD GAS HCO3 31.1 meq/L (22-26); ARTERIAL BLOOD GAS PCO2 46.2 mmHg (35-45); ARTERIAL BLOOD GAS PO2 73.7 mmHg (80-100); ARTERIAL BLOOD GAS pH 7.45 (7.35-7.45)
[2021-04-12 04:26] LABS: ALBUMIN 2.5 gm/dL (3.5-5.0); BILIRUBIN,TOTAL 0.6 mg/dL (0.2-1.2); CALCIUM 8.8 mg/dL (8.4-10.2); CREATININE, serum 0.74 mg/dL (0.72-1.25); MAGNESIUM 1.8 mg/dL (1.6-2.6); PHOSPHOROUS 2.4 mg/dL (2.3-4.7); POTASSIUM 3.8 mmol/L (3.5-4.5); TOTAL PROTEIN 6.4 gm/dL (6.2-8.1)
[2021-04-12 04:31] LABS: PRE ALBUMIN 22.8 mg/dL (17.6-36.0)
--- NOTE | 2021-04-12 05:02 | NUR ---
PRECEDEX IS COMPLETE, PATIENT HAS SPONTANEOUS EYE MOVEMENT.FORM WORDS WITH OPEN MOUTH, HEART RATE AND B/P SETTLE,
--- NOTE | 2021-04-12 14:04 | NUR ---
Consumer Insights Intern spoke with Paulino at [facility] who advised there is a bed available in [place] today. GORDON coordinated with Paulino and [facility] to set transportation time for 1430. GORDON contacted patient's , Farida to notify her of discharge time and she is in agreement with plan. GORDON notified RN of transport time and provided RN report phone number. GORDON faxed clinical updates and discharge orders to Paulino at [facility]. Dicharge Plan: [facility], today
--- NOTE | 2021-04-12 15:08 | NUR ---
[facility] to miner pick patient. 1508- PT discharged for [facility].
--- NOTE | 2021-04-12 15:30 | NUR ---
Report given to MEGHAN Guerra at [facility].
== END 2021-04-12 15:08 | DRG 4 ==
LOC: COL.ER 16:54 → ICU 18:17
PROVIDERS: Family Medicine; Internal Medicine; Internal Medicine Critical Care Medicine; Internal Medicine Gastroenterology; Internal Medicine Pulmonary Disease; Internal Medicine Sleep Medicine; Nurse Practitioner Family; Student in an Organized Health Care Education/Training Program; ADMIT Student in an Organized Health Care Education/Training Program
PROC: 05HM33Z Insertion of Infusion Device into Right Internal Jugular Vein, Percutaneous Approach (ICD-10-PCS; principal; 2021-03-16)
PROC: 5A1955Z Respiratory Ventilation, Greater than 96 Consecutive Hours (ICD-10-PCS; 2021-03-16)
PROC: 0BH17EZ Insertion of Endotracheal Airway into Trachea, Via Natural or Artificial Opening (ICD-10-PCS; 2021-03-16)
PROC: 02HV33Z Insertion of Infusion Device into Superior Vena Cava, Percutaneous Approach (ICD-10-PCS; 2021-03-23)
PROC: 0BJ08ZZ Inspection of Tracheobronchial Tree, Via Natural or Artificial Opening Endoscopic (ICD-10-PCS; 2021-03-31)
PROC: 02HV33Z Insertion of Infusion Device into Superior Vena Cava, Percutaneous Approach (ICD-10-PCS; 2021-03-31)
PROC: 0B113F4 Bypass Trachea to Cutaneous with Tracheostomy Device, Percutaneous Approach (ICD-10-PCS; 2021-04-05)
PROC: 0DH63UZ Insertion of Feeding Device into Stomach, Percutaneous Approach (ICD-10-PCS; 2021-04-05)
PROC: XW043E5 Introduction of Remdesivir Anti-infective into Central Vein, Percutaneous Approach, New Technology Group 5 (ICD-10-PCS; 2021-04-10)
PROC: 02HV33Z Insertion of Infusion Device into Superior Vena Cava, Percutaneous Approach (ICD-10-PCS; 2021-04-11)
DX: U07.1 COVID-19 (principal); J96.01 Acute respiratory failure with hypoxia; J96.02 Acute respiratory failure with hypercapnia; I46.9 Cardiac arrest, cause unspecified; I21.4 Non-ST elevation (NSTEMI) myocardial infarction; J18.1 Lobar pneumonia, unspecified organism; E87.4 Mixed disorder of acid-base balance; N17.9 Acute kidney failure, unspecified; K56.7 Ileus, unspecified; R78.81 Bacteremia; I95.9 Hypotension, unspecified; R45.1 Restlessness and agitation; B96.20 Unspecified Escherichia coli [E. coli] as the cause of diseases classified elsewhere; K59.00 Constipation, unspecified; E66.01 Morbid (severe) obesity due to excess calories; E78.5 Hyperlipidemia, unspecified; G89.29 Other chronic pain; M19.90 Unspecified osteoarthritis, unspecified site; E87.5 Hyperkalemia; R73.9 Hyperglycemia, unspecified; T38.0X5A Adverse effect of glucocorticoids and synthetic analogues, initial encounter; R50.9 Fever, unspecified; R41.0 Disorientation, unspecified; Z91.14 Patient's other noncompliance with medication regimen
CPT/HCPCS: 99223-AI; 99232-AI; 99233-AI; 99239; A4217; A4314; A7521; C1751; C1892; J0171; J0330; J0348; J0360; J0610; J0696; J1100; J1450; J1644; J1650; J1815; J1940; J2212; J2250; J2543; J2704; J2765; J3010; J3370; J3411; J3475; J3480; J7030; J7040; J7050; J7060; J7120; J7131; J8540; Q9967

== ENCOUNTER → 2022-05-24 | Outpatient (CLI) | payer OTHER ==
[~2022-05-24] MED LIST changes: +DAZIDOX10 MG PO; +LASIX 20MG TABL20 MG PO; +PERCOCET 325 MG1 TAB PO
== END ==
LOC: COL.RAD 13:45
DX: I71.21 Aneurysm of the ascending aorta, without rupture (principal); I27.21 Secondary pulmonary arterial hypertension; I11.9 Hypertensive heart disease without heart failure; R91.8 Other nonspecific abnormal finding of lung field